=== PATIENT | male | born 1955 | race Caucasian/White ===

== ENCOUNTER 2017-08-08 21:45 | Inpatient (IN) | payer MEDICAID, OTHER ==
[2017-08-08 23:40] LABS: AADO2 Arterial 33.7 mmHg (7.0-24.0); Allen Test ACCEPTAB; Arterial Base Excess -5.8 mmol/L (-3.0-3); Arterial Blood Gas Oxygen Sat 96.8 mmHG (95.0-98.0); Arterial COHb 0.2 % (0.0-3.0); Arterial Fraction of Oxyhgb 96.5 % (93.0-99.0); Arterial HCO3 16.7 mmol/L (22.0-26.0); Arterial MetHb 0.1 % (0.0-1.5); Arterial Total Hemglobin 12.9 g/dl (12.0-18.0); Arterial pCO2 25.4 mmhg (35-45); MODE ROOM AIR; Site Left Radial
[2017-08-09] MEDS: ACETAMINOPHEN 500 MG TAB PO (01:20)
[2017-08-09] MEDS: SODIUM CHLORIDE 0.9% 1L BAG IV* (01:20)
[2017-08-09 01:34] LABS: ADD MAN DIFF? NO
[2017-08-09 01:39] LABS: WHITE BLOOD COUNT 18.4 10^3/ul (4.8-10.8)
[2017-08-09 01:39] LABS: BASOPHIL # 0.1 10^3/ul (0.0-0.1); BASOPHILS % 0.3 % (0.0-2.0); EOSINOPHILS % 0.2 % (0.0-7.0); HEMATOCRIT 38.1 % (42.0-52.0); HEMOGLOBIN 12.6 g/dl (14.0-18.0); LYMPHOCYTES # 1.5 10^3/ul (0.8-2.9); LYMPHOCYTES % 7.9 % (15.0-51.0); MEAN CORPUSCULAR HEMOGLOBIN 26.9 pg (29.0-33.0); MEAN CORPUSCULAR HGB CONC 33.1 g/dl (32.0-37.0); MEAN CORPUSCULAR VOLUME 81.2 fl (82.0-101.0); MEAN PLATELET VOLUME 10.4 fl (7.4-10.4); MONOCYTE # 1.5 10^3/ul (0.3-0.9); MONOCYTES % 8.1 % (0.0-11.0); NEUTROPHIL # 15.2 10^3/ul (1.6-7.5); NEUTROPHILS % 82.7 % (39.0-77.0); PLATELET COUNT 263 10^3/UL (140-415); RED BLOOD COUNT 4.69 10^6/ul (4.70-6.10); RED CELL DISTRIBUTION WIDTH 13.3 % (11.5-14.5)
[2017-08-09 01:40] LABS: ADD UMIC YES; UR ASCORBIC ACID NEGATIVE (NEGATIVE); UR BILIRUBIN (Dip) NEGATIVE (NEGATIVE); UR BLOOD (Dip) 1+ mg/dL (NEGATIVE); UR CLARITY CLEAR (CLEAR); UR COLOR STRAW (YELLOW); UR GLUCOSE (Dip) 3+ mg/dL (NEGATIVE); UR KETONES (Dip) NEGATIVE (NEGATIVE); UR LEUKOCYTE ESTERASE (Dip) NEGATIVE Leu/ul (NEGATIVE); UR NITRITE (Dip) NEGATIVE (NEGATIVE); UR RBC 1 /HPF (0-5); UR SPECIFIC GRAVITY (Dip) 1.006 (1.003-1.030); UR TOTAL PROTEIN (Dip) 3+ mg/dl (NEGATIVE); UR UROBILINOGEN (Dip) NEGATIVE (NEGATIVE); UR WBC 0 /HPF (0-5)
[2017-08-09 01:54] LABS: LACTIC ACID 1.4 mmol/L (0.5-2.0)
[2017-08-09 01:56] LABS: ALANINE AMINOTRANSFERASE 27 IU/L (13-69); ALBUMIN 3.5 g/dl (3.3-4.9); ALBUMIN/GLOBULIN RATIO 0.87; ALKALINE PHOSPHATASE 141 IU/L (42-121); ANION GAP 15 (8-16); ASPARTATE AMINO TRANSFERASE 17 IU/L (15-46); BILIRUBIN,INDIRECT 0.2 mg/dl (0-1.1); BILIRUBIN,TOTAL 0.2 mg/dl (0.2-1.3); BLOOD UREA NITROGEN 28 mg/dl (7-20); CALCIUM 7.8 mg/dl (8.4-10.2); CARBON DIOXIDE 19 mmol/L (21-31); CHLORIDE 105 mmol/L (97-110); CREATININE 3.13 mg/dl (0.61-1.24); GLUCOSE 265 mg/dl (70-220); POTASSIUM 5.5 mmol/L (3.5-5.1); SODIUM 133 mmol/L (135-144); TOTAL PROTEIN 7.5 g/dl (6.1-8.1)
[2017-08-09 02:06] LABS: INR 1.13; PARTIAL THROMBOPLASTIN TIME 38.8 Sec (25.0-35.0); PROTIME 14.7 Sec (11.9-14.9); PT RATIO 1.1
[2017-08-09 02:07] LABS: TROPONIN-I 0.016 ng/ml (0.000-0.120)
[2017-08-09] MEDS: CEFEPIME 2GM/50 ML (PMX) 50 ML IVPB (02:14)
[2017-08-09] MEDS ORDERED: NACL 0.9% 3 ML SYG IV (02:30)
[2017-08-09] MEDS ORDERED: ACETAMINOPHEN 325 MG TAB PO (02:30)
[2017-08-09] MEDS ORDERED: morphine 2 MG INJ IV (02:30)
[2017-08-09] MEDS ORDERED: DOCUSATE SODIUM 100 MG CAP PO (02:30)
[2017-08-09] MEDS: VANCOMYCIN 1 GM (PMX) 250 ML IVPB (03:17)
[2017-08-09] MEDS: SOD CHLORIDE 0.9% 1,000 ML IV ×2 (03:18→17:19)
[2017-08-09 06:20] LABS: LACTIC ACID 1.2 mmol/L (0.5-2.0)
[2017-08-09 06:36] LABS: TROPONIN-I 0.016 ng/ml (0.000-0.120)
[2017-08-09 06:39] LABS: CK INDEX 0.8; CREATINE KINASE 214 IU/L (23-200)
[2017-08-09 06:50] LABS: CK-MB 1.64 ng/ml (0.0-2.4)
[2017-08-09] MEDS: GABAPENTIN 100 MG CAP PO ×2 (08:17→20:44)
[2017-08-09] MEDS: LISINOPRIL 10 MG TAB PO (08:17)
[2017-08-09 08:33] LABS: LACTIC ACID 0.7 mmol/L (0.5-2.0)
[2017-08-09] MEDS ORDERED: VANCOMYCIN IV PER PHARMACY XX (09:00)
[2017-08-09] MEDS: FUROSEMIDE 40 MG INJ IV (09:18)
[2017-08-09] MEDS: VANCOMYCIN 750 MG in DEXTROSE 5% 150 ML IVPB (09:18)
[2017-08-09] MEDS ORDERED: VANCOMYCIN 1.75 GM in SOD CHLORIDE 0.9% 500 ML IVPB (10:30)
[2017-08-09 10:59] LABS: SODIUM,URINE RANDOM 75 mmol/L (30-90)
[2017-08-09 11:00] LABS: ADD UMIC YES; UR ASCORBIC ACID NEGATIVE (NEGATIVE); UR BILIRUBIN (Dip) NEGATIVE (NEGATIVE); UR BLOOD (Dip) 1+ mg/dL (NEGATIVE); UR CLARITY CLEAR (CLEAR); UR COLOR COLORLESS (YELLOW); UR GLUCOSE (Dip) 3+ mg/dL (NEGATIVE); UR KETONES (Dip) NEGATIVE (NEGATIVE); UR LEUKOCYTE ESTERASE (Dip) NEGATIVE Leu/ul (NEGATIVE); UR NITRITE (Dip) NEGATIVE (NEGATIVE); UR RBC 1 /HPF (0-5); UR SPECIFIC GRAVITY (Dip) 1.002 (1.003-1.030); UR TOTAL PROTEIN (Dip) 2+ mg/dl (NEGATIVE); UR UROBILINOGEN (Dip) NEGATIVE (NEGATIVE); UR WBC 0 /HPF (0-5)
[2017-08-09] MEDS: INSULIN ASPART [NOVOLOG] 3 ML PEN SC ×6 (11:45→20:43)
[2017-08-09] MEDS: hydrALAzine 20 MG INJ IV ×2 (11:57→17:11)
[2017-08-09] MEDS ORDERED: GLUCOSE GEL 15 GRAM TUBE BUCCAL (12:00)
[2017-08-09] MEDS ORDERED: GLUCAGON 1 MG INJ IM (12:00)
[2017-08-09] MEDS ORDERED: GLUCOSE GEL 15 GRAM TUBE PO ×2 (12:00)
[2017-08-09] MEDS ORDERED: DEXTROSE 50% 50 ML SYRINGE IV ×2 (12:00)
[2017-08-09] MEDS: AMLODIPINE 5 MG TAB PO ×2 (13:38→20:45)
[2017-08-09 15:49] LABS: OSMOLALITY,URINE 258 mOsm/kg (250-1200)
[2017-08-09 16:03] LABS: LACTIC ACID 1.7 mmol/L (0.5-2.0)
[2017-08-09 16:04] LABS: CREATINE KINASE 309 IU/L (23-200)
[2017-08-09 16:06] LABS: ANION GAP 12 (8-16); BLOOD UREA NITROGEN 26 mg/dl (7-20); CALCIUM 8.1 mg/dl (8.4-10.2); CARBON DIOXIDE 20 mmol/L (21-31); CHLORIDE 113 mmol/L (97-110); CREATININE 3.05 mg/dl (0.61-1.24); GLUCOSE 209 mg/dl (70-220); POTASSIUM 4.4 mmol/L (3.5-5.1); SODIUM 141 mmol/L (135-144)
[2017-08-09 16:08] LABS: OSMOLALITY 296 mOsm/kg (280-295)
[2017-08-09 16:51] LABS: CREATININE,URINE RANDOM < 12.40 mg/dl (20-370)
[2017-08-09 17:07] LABS: CK-MB 3.19 ng/ml (0.0-2.4); TROPONIN-I < 0.010 ng/ml (0.000-0.120)
[2017-08-09 17:54] LABS: PREALBUMIN 18.9 mg/dl (17.6-36.0)
[2017-08-09 17:57] LABS: B-TYPE NATRIURETIC PEPTIDE 2290 PG/ML (0-125)
[2017-08-09] MEDS: ATORVASTATIN 20 MG TAB PO (20:44)
[2017-08-09] MEDS: INSULIN GLARGINE [LANtus] 3 ML PEN SC (20:44)
[2017-08-09] MEDS: CEFEPIME 1GM/50 ML (PMX) 50 ML IVPB (22:52)
[2017-08-10] MEDS: ACCU-CHEK XX (02:00)
[2017-08-10] MEDS: GABAPENTIN 100 MG CAP PO ×2 (08:22→20:13)
[2017-08-10] MEDS: AMLODIPINE 5 MG TAB PO ×2 (08:22→20:11)
[2017-08-10] MEDS: ASPIRIN 81 MG TAB PO (08:22)
[2017-08-10] MEDS: INSULIN ASPART [NOVOLOG] 3 ML PEN SC ×7 (08:24→20:12)
[2017-08-10] MEDS: FUROSEMIDE 40 MG INJ IV (08:33)
[2017-08-10 09:48] LABS: ADD MAN DIFF? NO
[2017-08-10 09:52] LABS: WHITE BLOOD COUNT 14.3 10^3/ul (4.8-10.8)
[2017-08-10 09:53] LABS: BASOPHILS % 0.3 % (0.0-2.0); EOSINOPHILS # 0.1 10^3/ul (0.0-0.5); EOSINOPHILS % 0.6 % (0.0-7.0); HEMATOCRIT 39.1 % (42.0-52.0); HEMOGLOBIN 12.7 g/dl (14.0-18.0); LYMPHOCYTES # 1.6 10^3/ul (0.8-2.9); MEAN CORPUSCULAR HEMOGLOBIN 26.5 pg (29.0-33.0); MEAN CORPUSCULAR HGB CONC 32.5 g/dl (32.0-37.0); MEAN CORPUSCULAR VOLUME 81.6 fl (82.0-101.0); MEAN PLATELET VOLUME 10.6 fl (7.4-10.4); MONOCYTES % 7.3 % (0.0-11.0); NEUTROPHIL # 11.5 10^3/ul (1.6-7.5); NEUTROPHILS % 80.2 % (39.0-77.0); PLATELET COUNT 276 10^3/UL (140-415); RED BLOOD COUNT 4.79 10^6/ul (4.70-6.10); RED CELL DISTRIBUTION WIDTH 13.5 % (11.5-14.5)
[2017-08-10 10:13] LABS: ALANINE AMINOTRANSFERASE 25 IU/L (13-69); ALBUMIN 3.7 g/dl (3.3-4.9); ALBUMIN/GLOBULIN RATIO 0.92; ALKALINE PHOSPHATASE 110 IU/L (42-121); ANION GAP 13 (8-16); ASPARTATE AMINO TRANSFERASE 18 IU/L (15-46); BILIRUBIN,INDIRECT 0.4 mg/dl (0-1.1); BILIRUBIN,TOTAL 0.4 mg/dl (0.2-1.3); BLOOD UREA NITROGEN 23 mg/dl (7-20); CALCIUM 7.9 mg/dl (8.4-10.2); CARBON DIOXIDE 22 mmol/L (21-31); CHLORIDE 109 mmol/L (97-110); CHOL/HDL RATIO 4.3 RATIO; CHOLESTEROL 121 mg/dl (100-200); CREATININE 2.86 mg/dl (0.61-1.24); GLUCOSE 184 mg/dl (70-220); HDL CHOLESTEROL 28 mg/dl (30-78); LDL CHOLESTEROL,CALCULATED 64 mg/dl; MAGNESIUM 1.6 mg/dl (1.7-2.5); PHOSPHORUS 3.3 mg/dl (2.5-4.9); POTASSIUM 4.1 mmol/L (3.5-5.1); SODIUM 140 mmol/L (135-144); TOTAL PROTEIN 7.7 g/dl (6.1-8.1); TRIGLYCERIDES 144 mg/dl (0-149)
[2017-08-10 10:25] LABS: HEMOGLOBIN A1C 9.2 % (0-5.9)
[2017-08-10 15:51] LABS: CREATININE, RANDOM URINE 19 mg/dL (20-370); MICROALBUMIN 75.3 mg/dL; MICROALBUMIN/CREATININE RATIO 3963 (<30)
[2017-08-10] MEDS: hydrALAzine 20 MG INJ IV (17:22)
[2017-08-10] MEDS: CEFEPIME 1GM/50 ML (PMX) 50 ML IVPB (20:10)
[2017-08-10] MEDS: INSULIN GLARGINE [LANtus] 3 ML PEN SC (20:12)
[2017-08-10] MEDS: ATORVASTATIN 20 MG TAB PO (20:13)
[2017-08-10] MEDS: morphine LIQ (10 MG/5 ML) CUP PO (21:40)
[2017-08-11 00:37] LABS: PROTEIN, TOTAL 6.8 g/dL (6.1-8.1)
[2017-08-11] MEDS: ACCU-CHEK XX ×2 (02:00→22:37)
[2017-08-11] MEDS: hydrALAzine 20 MG INJ IV (03:32)
[2017-08-11] MEDS: ONDANSETRON 4 MG INJ IV (06:48)
[2017-08-11 07:33] LABS: ADD MAN DIFF? NO
[2017-08-11 07:39] LABS: WHITE BLOOD COUNT 13.9 10^3/ul (4.8-10.8)
[2017-08-11 07:39] LABS: BASOPHILS % 0.2 % (0.0-2.0); EOSINOPHILS # 0.1 10^3/ul (0.0-0.5); EOSINOPHILS % 0.9 % (0.0-7.0); HEMATOCRIT 42.6 % (42.0-52.0); HEMOGLOBIN 13.8 g/dl (14.0-18.0); LYMPHOCYTES # 1.6 10^3/ul (0.8-2.9); LYMPHOCYTES % 11.3 % (15.0-51.0); MEAN CORPUSCULAR HEMOGLOBIN 26.5 pg (29.0-33.0); MEAN CORPUSCULAR HGB CONC 32.4 g/dl (32.0-37.0); MEAN CORPUSCULAR VOLUME 81.8 fl (82.0-101.0); MEAN PLATELET VOLUME 10.4 fl (7.4-10.4); MONOCYTE # 0.9 10^3/ul (0.3-0.9); MONOCYTES % 6.5 % (0.0-11.0); NEUTROPHIL # 11.2 10^3/ul (1.6-7.5); NEUTROPHILS % 80.5 % (39.0-77.0); PLATELET COUNT 334 10^3/UL (140-415); RED BLOOD COUNT 5.21 10^6/ul (4.70-6.10); RED CELL DISTRIBUTION WIDTH 13.6 % (11.5-14.5)
[2017-08-11 07:52] LABS: ANION GAP 12 (8-16); BLOOD UREA NITROGEN 21 mg/dl (7-20); CALCIUM 8.5 mg/dl (8.4-10.2); CARBON DIOXIDE 23 mmol/L (21-31); CHLORIDE 108 mmol/L (97-110); CREATININE 2.74 mg/dl (0.61-1.24); GLUCOSE 202 mg/dl (70-220); MAGNESIUM 1.6 mg/dl (1.7-2.5); PHOSPHORUS 3.7 mg/dl (2.5-4.9); POTASSIUM 4.2 mmol/L (3.5-5.1); SODIUM 139 mmol/L (135-144)
[2017-08-11] MEDS: ASPIRIN 81 MG TAB PO (08:12)
[2017-08-11] MEDS: AMLODIPINE 5 MG TAB PO ×2 (08:12→20:31)
[2017-08-11] MEDS: GABAPENTIN 100 MG CAP PO ×2 (08:12→20:29)
[2017-08-11] MEDS: INSULIN ASPART [NOVOLOG] 3 ML PEN SC ×7 (08:13→20:31)
[2017-08-11] MEDS: FUROSEMIDE 40 MG INJ IV ×2 (08:44→17:19)
[2017-08-11 09:44] LABS: HAAIG REFLEX REFLEX FILED
[2017-08-11] MEDS: MAGNESIUM SULFATE 1 GM/D5W 100 ML IVPB (10:17)
[2017-08-11] MEDS: POLYETHYLENE GLYCOL 17 GM PACKET PO ×2 (10:17→20:30)
[2017-08-11 10:29] LABS: COMPLEMENT C3 150 mg/dl (88-165)
[2017-08-11 10:46] LABS: COMPLEMENT C4 70 mg/dl (14-44)
[2017-08-11 10:52] LABS: HEPATITIS B SURFACE ANTIGEN NEGATIVE (NEGATIVE)
[2017-08-11] MEDS ORDERED: VANCOMYCIN 1.25 GM in SOD CHLORIDE 0.9% 250 ML IVPB (11:00)
[2017-08-11 11:10] LABS: HEPATITIS B CORE ANTIBODY NEGATIVE (NEGATIVE); HEPATITIS C VIRAL ANTIBODY NEGATIVE (NEGATIVE)
[2017-08-11 14:57] LABS: ALBUMIN 2.9 g/dL (3.8-4.8); ALPHA-1-GLOBULINS 0.4 g/dL (0.2-0.3); ALPHA-2-GLOBULINS 1.2 g/dL (0.5-0.9); BETA 2 GLOBULINS 0.6 g/dL (0.2-0.5); BETA GLOBULINS 0.4 g/dL (0.4-0.6); GAMMA GLOBULINS 1.3 g/dL (0.8-1.7)
[2017-08-11 15:31] LABS: RHEUMATOID FACTOR NEGATIVE (NEGATIVE)
[2017-08-11] MEDS: INSULIN GLARGINE [LANtus] 3 ML PEN SC (20:28)
[2017-08-11] MEDS: ATORVASTATIN 20 MG TAB PO (20:29)
[2017-08-12 06:11] LABS: ADD MAN DIFF? NO
[2017-08-12 06:17] LABS: BASOPHIL # 0.1 10^3/ul (0.0-0.1); BASOPHILS % 0.5 % (0.0-2.0); EOSINOPHILS # 0.2 10^3/ul (0.0-0.5); EOSINOPHILS % 1.9 % (0.0-7.0); HEMATOCRIT 38.1 % (42.0-52.0); HEMOGLOBIN 12.6 g/dl (14.0-18.0); LYMPHOCYTES % 18.7 % (15.0-51.0); MEAN CORPUSCULAR HEMOGLOBIN 27.1 pg (29.0-33.0); MEAN CORPUSCULAR HGB CONC 33.1 g/dl (32.0-37.0); MEAN CORPUSCULAR VOLUME 81.9 fl (82.0-101.0); MEAN PLATELET VOLUME 10.3 fl (7.4-10.4); MONOCYTES % 9.5 % (0.0-11.0); NEUTROPHIL # 7.3 10^3/ul (1.6-7.5); NEUTROPHILS % 68.9 % (39.0-77.0); PLATELET COUNT 290 10^3/UL (140-415); RED BLOOD COUNT 4.65 10^6/ul (4.70-6.10); RED CELL DISTRIBUTION WIDTH 13.6 % (11.5-14.5)
[2017-08-12 06:17] LABS: WHITE BLOOD COUNT 10.6 10^3/ul (4.8-10.8)
[2017-08-12] MEDS: FUROSEMIDE 40 MG INJ IV (06:19)
[2017-08-12 07:04] LABS: ANION GAP 9 (8-16); BLOOD UREA NITROGEN 33 mg/dl (7-20); CALCIUM 7.9 mg/dl (8.4-10.2); CARBON DIOXIDE 25 mmol/L (21-31); CHLORIDE 107 mmol/L (97-110); CREATININE 3.48 mg/dl (0.61-1.24); GLUCOSE 220 mg/dl (70-220); MAGNESIUM 1.9 mg/dl (1.7-2.5); PHOSPHORUS 4.6 mg/dl (2.5-4.9); POTASSIUM 4.2 mmol/L (3.5-5.1); SODIUM 137 mmol/L (135-144)
[2017-08-12] MEDS: ASPIRIN 81 MG TAB PO (08:41)
[2017-08-12] MEDS: GABAPENTIN 100 MG CAP PO ×2 (08:42→21:03)
[2017-08-12] MEDS: AMLODIPINE 5 MG TAB PO ×2 (08:42→21:03)
[2017-08-12] MEDS: POLYETHYLENE GLYCOL 17 GM PACKET PO ×2 (08:42→21:07)
[2017-08-12] MEDS: INSULIN ASPART [NOVOLOG] 3 ML PEN SC ×7 (08:43→21:00)
[2017-08-12 11:27] LABS: MYELOPEROXIDASE ANTIBODY <1.0 AI; PROTEINASE-3 ANTIBODY <1.0 AI
[2017-08-12 12:56] LABS: ANCA SCREEN NEGATIVE (NEGATIVE)
[2017-08-12 19:42] LABS: ANA SCREEN POSITIVE (NEGATIVE)
[2017-08-12 20:26] LABS: ANA PATTERN NUCLEOLAR; ANA TITER 1:40 titer
[2017-08-12] MEDS: ATORVASTATIN 20 MG TAB PO (21:04)
[2017-08-12] MEDS: INSULIN GLARGINE [LANtus] 3 ML PEN SC (21:14)
[2017-08-13] MEDS: ACCU-CHEK XX (01:41)
[2017-08-13] MEDS: BISACODYL (EC) 5 MG TAB PO (06:14)
[2017-08-13 07:35] LABS: ANION GAP 12 (8-16); BLOOD UREA NITROGEN 42 mg/dl (7-20); CARBON DIOXIDE 24 mmol/L (21-31); CHLORIDE 105 mmol/L (97-110); CREATININE 3.42 mg/dl (0.61-1.24); GLUCOSE 189 mg/dl (70-220); PHOSPHORUS 4.7 mg/dl (2.5-4.9); POTASSIUM 4.9 mmol/L (3.5-5.1); SODIUM 136 mmol/L (135-144)
[2017-08-13] MEDS: AMLODIPINE 5 MG TAB PO (08:28)
[2017-08-13] MEDS: ASPIRIN 81 MG TAB PO (08:28)
[2017-08-13] MEDS: GABAPENTIN 100 MG CAP PO (08:28)
[2017-08-13] MEDS: POLYETHYLENE GLYCOL 17 GM PACKET PO (08:29)
[2017-08-13] MEDS: INSULIN ASPART [NOVOLOG] 3 ML PEN SC ×4 (08:31→11:54)
[2017-08-15 14:11] LABS: ANTI-DNA (DOUBLE STRANDED) 1850 U/mL (< 301)
== END 2017-08-13 16:05 | disposition home or self-care (01) | DRG 872 ==
LOC: E/R 21:45 → MS3 08-09 01:58 → MS4 08-09 10:38
DX: A41.9 Sepsis, unspecified organism (principal); N17.9 Acute kidney failure, unspecified; E87.1 Hypo-osmolality and hyponatremia; N18.4 Chronic kidney disease, stage 4 (severe); E11.21 Type 2 diabetes mellitus with diabetic nephropathy; E11.40 Type 2 diabetes mellitus with diabetic neuropathy, unspecified; E11.22 Type 2 diabetes mellitus with diabetic chronic kidney disease; E87.5 Hyperkalemia; I12.9 Hypertensive chronic kidney disease with stage 1 through stage 4 chronic kidney disease, or unspecified chronic kidney disease; R07.9 Chest pain, unspecified; I73.9 Peripheral vascular disease, unspecified; R10.9 Unspecified abdominal pain; D63.1 Anemia in chronic kidney disease; K27.9 Peptic ulcer, site unspecified, unspecified as acute or chronic, without hemorrhage or perforation; Z79.4 Long term (current) use of insulin; R65.20 Severe sepsis without septic shock
CPT/HCPCS: 36415; 36600; 71045; 76700; 80048; 80053; 80061; 81001; 81003; 82043; 82550; 82553; 82570; 82595; 82803; 82962; 83036; 83605; 83735; 83880; 83930; 83935; 84100; 84134; 84155; 84156; 84165; 84166; 84300; 84443; 84484; 85025; 85610; 85730; 86021; 86038; 86160; 86226; 86320; 86325; 86430; 86704; 86709; 86803; 87040; 87045; 87086; 87340; 87400; 93005; 93306; 93970; 96361; 96365; 96366; 96375; 99291-25

== ENCOUNTER 2017-08-22 00:28 | Emergency (ER) | payer SELFPAY, MEDICAID | END 2017-08-22 02:11 | disposition home or self-care (01) | LOC: FTE 00:28 | DX: Z76.0 Encounter for issue of repeat prescription (principal); I10 Essential (primary) hypertension; E11.9 Type 2 diabetes mellitus without complications; Z79.4 Long term (current) use of insulin | CPT/HCPCS: 99283 ==

== ENCOUNTER 2017-10-13 18:57 | Emergency (ER) | payer SELFPAY ==
[2017-10-13 20:53] LABS: ADD MAN DIFF? NO
[2017-10-13 20:55] LABS: WHITE BLOOD COUNT 11.3 10^3/ul (4.8-10.8)
[2017-10-13 20:55] LABS: BASOPHIL # 0.1 10^3/ul (0.0-0.1); BASOPHILS % 0.5 % (0.0-2.0); EOSINOPHILS # 0.3 10^3/ul (0.0-0.5); EOSINOPHILS % 2.2 % (0.0-7.0); HEMATOCRIT 39.9 % (42.0-52.0); HEMOGLOBIN 12.8 g/dl (14.0-18.0); LYMPHOCYTES # 3.3 10^3/ul (0.8-2.9); LYMPHOCYTES % 29.5 % (15.0-51.0); MEAN CORPUSCULAR HEMOGLOBIN 26.6 pg (29.0-33.0); MEAN CORPUSCULAR HGB CONC 32.1 g/dl (32.0-37.0); MEAN PLATELET VOLUME 10.4 fl (7.4-10.4); MONOCYTE # 1.1 10^3/ul (0.3-0.9); NEUTROPHIL # 6.5 10^3/ul (1.6-7.5); NEUTROPHILS % 57.4 % (39.0-77.0); PLATELET COUNT 284 10^3/UL (140-415); RED BLOOD COUNT 4.81 10^6/ul (4.70-6.10)
[2017-10-13 21:01] LABS: ALANINE AMINOTRANSFERASE 24 IU/L (13-69); ALBUMIN 4.3 g/dl (3.3-4.9); ALBUMIN/GLOBULIN RATIO 0.93; ALKALINE PHOSPHATASE 116 IU/L (42-121); ANION GAP 18 (8-16); ASPARTATE AMINO TRANSFERASE 26 IU/L (15-46); BILIRUBIN,INDIRECT 0.1 mg/dl (0-1.1); BILIRUBIN,TOTAL 0.1 mg/dl (0.2-1.3); BLOOD UREA NITROGEN 28 mg/dl (7-20); CALCIUM 8.6 mg/dl (8.4-10.2); CARBON DIOXIDE 20 mmol/L (21-31); CHLORIDE 111 mmol/L (97-110); CREATININE 3.25 mg/dl (0.61-1.24); GLUCOSE 144 mg/dl (70-220); LIPASE 327 U/L (23-300); SODIUM 143 mmol/L (135-144); TOTAL PROTEIN 8.9 g/dl (6.1-8.1)
[2017-10-13 21:04] LABS: POTASSIUM 5.5 mmol/L (3.5-5.1)
[2017-10-13 21:13] LABS: TROPONIN-I < 0.010 ng/ml (0.000-0.120)
[2017-10-13] MEDS: ALBUTEROL 0.5% (NEB) 2.5 MG/0.5 ML AMP INH (21:53)
[2017-10-13 23:01] LABS: ANION GAP 13 (8-16); BLOOD UREA NITROGEN 26 mg/dl (7-20); CALCIUM 8.2 mg/dl (8.4-10.2); CARBON DIOXIDE 19 mmol/L (21-31); CHLORIDE 113 mmol/L (97-110); CREATININE 3.02 mg/dl (0.61-1.24); GLUCOSE 135 mg/dl (70-220); POTASSIUM 5.5 mmol/L (3.5-5.1); SODIUM 139 mmol/L (135-144)
[2017-10-13] MEDS: NA POLYST SULFON 15 GM/60 ML BTL PO (23:25)
[2017-10-13] MEDS: INSULIN REGULAR, HUMAN 100 UNIT/1 ML 3ML VIAL IVP (23:25)
[2017-10-13] MEDS: DEXTROSE 50% 50 ML SYRINGE IV (23:25)
[2017-10-13] MEDS ORDERED: DEXTROSE 50% 50 ML SYRINGE IV (23:30)
[2017-10-13] MEDS: FUROSEMIDE 20 MG TAB PO (23:40)
== END 2017-10-14 00:40 | disposition home or self-care (01) ==
LOC: E/R 10-14 00:40
DX: I12.9 Hypertensive chronic kidney disease with stage 1 through stage 4 chronic kidney disease, or unspecified chronic kidney disease (principal); E87.5 Hyperkalemia; N18.3 Chronic kidney disease, stage 3 (moderate); E11.22 Type 2 diabetes mellitus with diabetic chronic kidney disease; R06.02 Shortness of breath; Z76.0 Encounter for issue of repeat prescription; Z79.4 Long term (current) use of insulin
CPT/HCPCS: 36415; 71045; 80048; 80053; 82962; 83690; 84484; 85025; 93005; 94644; 96374; 96375; 99291-25

== ENCOUNTER 2017-11-18 12:32 | Inpatient (IN) | payer MEDICAID ==
[2017-11-18] MEDS: hydrALAzine 20 MG INJ IV (13:04)
[2017-11-18 13:09] LABS: ADD MAN DIFF? NO
[2017-11-18 13:13] LABS: WHITE BLOOD COUNT 14.5 10^3/ul (4.8-10.8)
[2017-11-18 13:13] LABS: BASOPHIL # 0.1 10^3/ul (0.0-0.1); BASOPHILS % 0.3 % (0.0-2.0); EOSINOPHILS # 0.1 10^3/ul (0.0-0.5); EOSINOPHILS % 0.6 % (0.0-7.0); HEMATOCRIT 37.5 % (42.0-52.0); HEMOGLOBIN 12.3 g/dl (14.0-18.0); LYMPHOCYTES % 7.2 % (15.0-51.0); MEAN CORPUSCULAR HEMOGLOBIN 26.9 pg (29.0-33.0); MEAN CORPUSCULAR HGB CONC 32.8 g/dl (32.0-37.0); MEAN CORPUSCULAR VOLUME 82.1 fl (82.0-101.0); MEAN PLATELET VOLUME 10.3 fl (7.4-10.4); MONOCYTE # 0.7 10^3/ul (0.3-0.9); MONOCYTES % 4.6 % (0.0-11.0); NEUTROPHIL # 12.6 10^3/ul (1.6-7.5); NEUTROPHILS % 86.8 % (39.0-77.0); PLATELET COUNT 315 10^3/UL (140-415); RED BLOOD COUNT 4.57 10^6/ul (4.70-6.10); RED CELL DISTRIBUTION WIDTH 13.9 % (11.5-14.5)
[2017-11-18 13:29] LABS: ANION GAP 16 (8-16); BLOOD UREA NITROGEN 31 mg/dl (7-20); CARBON DIOXIDE 21 mmol/L (21-31); CHLORIDE 110 mmol/L (97-110); CREATININE 3.18 mg/dl (0.61-1.24); GLUCOSE 187 mg/dl (70-220); POTASSIUM 4.7 mmol/L (3.5-5.1); SODIUM 142 mmol/L (135-144)
[2017-11-18 13:32] LABS: INR 0.94; PROTIME 12.7 Sec (11.9-14.9)
[2017-11-18 13:33] LABS: PARTIAL THROMBOPLASTIN TIME 34.4 Sec (25.0-35.0)
[2017-11-18 13:41] LABS: TROPONIN-I < 0.012 ng/ml (0.000-0.120)
[2017-11-18] MEDS: LABETALOL HCL 20MG INJ IV (13:45)
[2017-11-18] MEDS: AMLODIPINE 5 MG TAB PO (14:42)
[2017-11-18] MEDS ORDERED: ACETAMINOPHEN 325 MG TAB PO (16:30)
[2017-11-18] MEDS ORDERED: NACL 0.9% 3 ML SYG IV (16:30)
[2017-11-18] MEDS ORDERED: ONDANSETRON 4 MG INJ IV ×2 (16:30)
[2017-11-18] MEDS ORDERED: GLUCOSE GEL 15 GRAM TUBE BUCCAL (17:30)
[2017-11-18] MEDS ORDERED: GLUCOSE GEL 15 GRAM TUBE PO ×2 (17:30)
[2017-11-18] MEDS ORDERED: DEXTROSE 50% 50 ML SYRINGE IV ×2 (17:30)
[2017-11-18] MEDS ORDERED: GLUCAGON 1 MG INJ IM (17:30)
[2017-11-18] MEDS: INSULIN ASPART [NOVOLOG] 3 ML PEN SC ×3 (18:45→21:38)
[2017-11-18] MEDS ORDERED: CARVEDILOL 12.5 MG PO (21:00)
[2017-11-18] MEDS: GABAPENTIN 100 MG CAP PO (21:16)
[2017-11-18] MEDS: ATORVASTATIN 20 MG TAB PO (21:16)
[2017-11-18] MEDS: INSULIN GLARGINE [LANTus] (100 UNITS/ML) SYG SC (21:38)
[2017-11-19 06:10] LABS: ADD MAN DIFF? NO
[2017-11-19 06:16] LABS: WHITE BLOOD COUNT 12.4 10^3/ul (4.8-10.8)
[2017-11-19 06:16] LABS: BASOPHIL # 0.1 10^3/ul (0.0-0.1); BASOPHILS % 0.4 % (0.0-2.0); EOSINOPHILS # 0.2 10^3/ul (0.0-0.5); EOSINOPHILS % 1.9 % (0.0-7.0); HEMATOCRIT 32.5 % (42.0-52.0); HEMOGLOBIN 10.5 g/dl (14.0-18.0); LYMPHOCYTES # 1.9 10^3/ul (0.8-2.9); LYMPHOCYTES % 15.5 % (15.0-51.0); MEAN CORPUSCULAR HEMOGLOBIN 26.4 pg (29.0-33.0); MEAN CORPUSCULAR HGB CONC 32.3 g/dl (32.0-37.0); MEAN CORPUSCULAR VOLUME 81.9 fl (82.0-101.0); MEAN PLATELET VOLUME 10.3 fl (7.4-10.4); MONOCYTE # 1.1 10^3/ul (0.3-0.9); MONOCYTES % 8.9 % (0.0-11.0); NEUTROPHIL # 9.1 10^3/ul (1.6-7.5); NEUTROPHILS % 72.8 % (39.0-77.0); PLATELET COUNT 283 10^3/UL (140-415); RED BLOOD COUNT 3.97 10^6/ul (4.70-6.10); RED CELL DISTRIBUTION WIDTH 14.1 % (11.5-14.5)
[2017-11-19 06:57] LABS: CREATINE KINASE 68 IU/L (23-200)
[2017-11-19 07:01] LABS: CHOLESTEROL 126 mg/dl (100-200); HDL CHOLESTEROL 31 mg/dl (30-78); LDL CHOLESTEROL,CALCULATED 69 mg/dl; TRIGLYCERIDES 131 mg/dl (0-149)
[2017-11-19 07:01] LABS: PHOSPHORUS 3.8 mg/dl (2.5-4.9)
[2017-11-19 07:11] LABS: CK INDEX 1.5; CK-MB 1.05 ng/ml (0.0-2.4); TROPONIN-I < 0.012 ng/ml (0.000-0.120)
[2017-11-19 07:37] LABS: ALBUMIN 3.3 g/dl (3.3-4.9); ALBUMIN/GLOBULIN RATIO 0.84; ALKALINE PHOSPHATASE 95 IU/L (42-121); ANION GAP 11 (8-16); ASPARTATE AMINO TRANSFERASE 20 IU/L (15-46); BILIRUBIN,INDIRECT 0.2 mg/dl (0-1.1); BILIRUBIN,TOTAL 0.2 mg/dl (0.2-1.3); BLOOD UREA NITROGEN 34 mg/dl (7-20); CALCIUM 8.4 mg/dl (8.4-10.2); CARBON DIOXIDE 21 mmol/L (21-31); CHLORIDE 112 mmol/L (97-110); CREATININE 3.13 mg/dl (0.61-1.24); GLUCOSE 139 mg/dl (70-220); POTASSIUM 4.2 mmol/L (3.5-5.1); SODIUM 140 mmol/L (135-144); TOTAL PROTEIN 7.2 g/dl (6.1-8.1)
[2017-11-19 08:00] LABS: ALANINE AMINOTRANSFERASE 26 IU/L (13-69)
[2017-11-19] MEDS: GABAPENTIN 100 MG CAP PO ×2 (08:12→21:06)
[2017-11-19] MEDS: AMLODIPINE 2.5 MG TAB PO (08:13)
[2017-11-19] MEDS: INSULIN ASPART [NOVOLOG] 3 ML PEN SC ×7 (08:46→21:25)
[2017-11-19] MEDS: hydrALAzine 20 MG INJ IV (15:02)
[2017-11-19] MEDS: ATORVASTATIN 20 MG TAB PO (21:06)
[2017-11-19] MEDS: AMLODIPINE 5 MG TAB PO (21:07)
[2017-11-19] MEDS: INSULIN GLARGINE [LANTus] (100 UNITS/ML) SYG SC (21:24)
[2017-11-20 02:18] LABS: AMPHETAMINE/METHAMPHETAMINE NEGATIVE (NEGATIVE); BARBITURATES NEGATIVE (NEGATIVE); BENZODIAZEPINES NEGATIVE (NEGATIVE); CANNABINOIDS NEGATIVE (NEGATIVE); COCAINE NEGATIVE (NEGATIVE); OPIATES NEGATIVE (NEGATIVE)
[2017-11-20] MEDS: ACCU-CHEK XX (02:22)
[2017-11-20 05:52] LABS: ADD MAN DIFF? NO
[2017-11-20 06:01] LABS: WHITE BLOOD COUNT 11.2 10^3/ul (4.8-10.8)
[2017-11-20 06:01] LABS: BASOPHIL # 0.1 10^3/ul (0.0-0.1); BASOPHILS % 0.5 % (0.0-2.0); EOSINOPHILS # 0.3 10^3/ul (0.0-0.5); EOSINOPHILS % 2.6 % (0.0-7.0); HEMATOCRIT 36.5 % (42.0-52.0); HEMOGLOBIN 11.8 g/dl (14.0-18.0); LYMPHOCYTES # 2.1 10^3/ul (0.8-2.9); LYMPHOCYTES % 18.7 % (15.0-51.0); MEAN CORPUSCULAR HEMOGLOBIN 26.5 pg (29.0-33.0); MEAN CORPUSCULAR HGB CONC 32.3 g/dl (32.0-37.0); MEAN PLATELET VOLUME 10.4 fl (7.4-10.4); MONOCYTES % 8.6 % (0.0-11.0); NEUTROPHIL # 7.8 10^3/ul (1.6-7.5); NEUTROPHILS % 69.2 % (39.0-77.0); PLATELET COUNT 337 10^3/UL (140-415); RED BLOOD COUNT 4.45 10^6/ul (4.70-6.10); RED CELL DISTRIBUTION WIDTH 14.2 % (11.5-14.5)
[2017-11-20 06:46] LABS: ANION GAP 14 (8-16); BLOOD UREA NITROGEN 37 mg/dl (7-20); CALCIUM 8.6 mg/dl (8.4-10.2); CARBON DIOXIDE 19 mmol/L (21-31); CHLORIDE 112 mmol/L (97-110); CREATININE 3.21 mg/dl (0.61-1.24); GLUCOSE 139 mg/dl (70-220); POTASSIUM 4.5 mmol/L (3.5-5.1); SODIUM 140 mmol/L (135-144)
[2017-11-20 06:48] LABS: PHOSPHORUS 4.2 mg/dl (2.5-4.9)
[2017-11-20 07:01] LABS: TROPONIN-I < 0.012 ng/ml (0.000-0.120)
[2017-11-20] MEDS: GABAPENTIN 100 MG CAP PO ×2 (08:23→20:40)
[2017-11-20] MEDS: AMLODIPINE 5 MG TAB PO ×2 (08:23→20:40)
[2017-11-20] MEDS: INSULIN ASPART [NOVOLOG] 3 ML PEN SC ×7 (08:51→21:00)
[2017-11-20] MEDS ORDERED: PENDING SANTYL ORDER FOR WOUND CARE XX (16:00)
[2017-11-20] MEDS: ATORVASTATIN 20 MG TAB PO (20:40)
[2017-11-20] MEDS: INSULIN GLARGINE [LANTus] (100 UNITS/ML) SYG SC (21:04)
[2017-11-20] MEDS: hydrALAzine 20 MG INJ IV (22:11)
[2017-11-21] MEDS: ACCU-CHEK XX (01:41)
[2017-11-21] MEDS: GABAPENTIN 100 MG CAP PO ×2 (08:27→20:09)
[2017-11-21] MEDS: AMLODIPINE 5 MG TAB PO ×2 (08:28→20:08)
[2017-11-21] MEDS: INSULIN ASPART [NOVOLOG] 3 ML PEN SC ×7 (09:02→20:09)
[2017-11-21] MEDS ORDERED: COLLAGENASE 5 GM (UD JAR) TOP (14:30)
[2017-11-21] MEDS: COLLAGENASE 5 GM (UD JAR) TOP (14:37)
[2017-11-21 14:57] LABS: ADD UMIC YES; UR ASCORBIC ACID NEGATIVE (NEGATIVE); UR BACTERIA FEW /HPF (NONE SEEN); UR BILIRUBIN (Dip) NEGATIVE (NEGATIVE); UR BLOOD (Dip) NEGATIVE (NEGATIVE); UR CLARITY CLEAR (CLEAR); UR COLOR STRAW (YELLOW); UR GLUCOSE (Dip) 2+ mg/dL (NEGATIVE); UR KETONES (Dip) NEGATIVE (NEGATIVE); UR LEUKOCYTE ESTERASE (Dip) NEGATIVE Leu/ul (NEGATIVE); UR NITRITE (Dip) NEGATIVE (NEGATIVE); UR RBC 1 /HPF (0-5); UR SPECIFIC GRAVITY (Dip) 1.009 (1.003-1.030); UR TOTAL PROTEIN (Dip) 3+ mg/dl (NEGATIVE); UR UROBILINOGEN (Dip) NEGATIVE (NEGATIVE); UR WBC 1 /HPF (0-5)
[2017-11-21 15:02] LABS: CREATININE,URINE RANDOM 73.62 mg/dl (20-370)
[2017-11-21 15:02] LABS: SODIUM,URINE RANDOM 31 mmol/L (30-90)
[2017-11-21 15:33] LABS: HAAIG REFLEX REFLEX FILED
[2017-11-21 16:32] LABS: HEPATITIS B SURFACE ANTIGEN NEGATIVE (NEGATIVE)
[2017-11-21 16:50] LABS: HEPATITIS B CORE ANTIBODY NEGATIVE (NEGATIVE); HEPATITIS C VIRAL ANTIBODY NEGATIVE (NEGATIVE)
[2017-11-21] MEDS: hydrALAzine 20 MG INJ IV (17:31)
[2017-11-21] MEDS: HYDROCODONE/APAP (5/325) TAB PO (17:53)
[2017-11-21] MEDS ORDERED: HYDROCODONE/APAP (5/325) TAB PO (18:00)
[2017-11-21] MEDS: ATORVASTATIN 20 MG TAB PO (20:08)
[2017-11-21] MEDS: INSULIN GLARGINE [LANTus] (100 UNITS/ML) SYG SC (20:12)
[2017-11-22] MEDS: ACCU-CHEK XX (02:00)
[2017-11-22 06:47] LABS: ADD MAN DIFF? NO
[2017-11-22 06:48] LABS: WHITE BLOOD COUNT 12.2 10^3/ul (4.8-10.8)
[2017-11-22 06:48] LABS: BASOPHIL # 0.1 10^3/ul (0.0-0.1); BASOPHILS % 0.6 % (0.0-2.0); EOSINOPHILS # 0.4 10^3/ul (0.0-0.5); EOSINOPHILS % 3.2 % (0.0-7.0); HEMATOCRIT 37.7 % (42.0-52.0); LYMPHOCYTES # 2.6 10^3/ul (0.8-2.9); LYMPHOCYTES % 20.9 % (15.0-51.0); MEAN CORPUSCULAR HEMOGLOBIN 26.3 pg (29.0-33.0); MEAN CORPUSCULAR HGB CONC 31.8 g/dl (32.0-37.0); MEAN CORPUSCULAR VOLUME 82.7 fl (82.0-101.0); MEAN PLATELET VOLUME 10.3 fl (7.4-10.4); MONOCYTES % 7.9 % (0.0-11.0); NEUTROPHIL # 8.2 10^3/ul (1.6-7.5); NEUTROPHILS % 67.1 % (39.0-77.0); PLATELET COUNT 368 10^3/UL (140-415); RED BLOOD COUNT 4.56 10^6/ul (4.70-6.10); RED CELL DISTRIBUTION WIDTH 14.3 % (11.5-14.5)
[2017-11-22 07:11] LABS: ANION GAP 16 (8-16); BLOOD UREA NITROGEN 50 mg/dl (7-20); CALCIUM 8.8 mg/dl (8.4-10.2); CARBON DIOXIDE 20 mmol/L (21-31); CHLORIDE 109 mmol/L (97-110); GLUCOSE 138 mg/dl (70-220); POTASSIUM 5.1 mmol/L (3.5-5.1); SODIUM 140 mmol/L (135-144)
[2017-11-22] MEDS: INSULIN ASPART [NOVOLOG] 3 ML PEN SC ×7 (07:55→20:29)
[2017-11-22] MEDS: AMLODIPINE 5 MG TAB PO ×2 (08:16→20:22)
[2017-11-22] MEDS: GABAPENTIN 100 MG CAP PO ×2 (08:16→20:22)
[2017-11-22] MEDS: COLLAGENASE 5 GM (UD JAR) TOP (08:17)
[2017-11-22 15:05] LABS: RHEUMATOID FACTOR NEGATIVE (NEGATIVE)
[2017-11-22] MEDS: hydrALAzine 20 MG INJ IV (19:17)
[2017-11-22] MEDS: ATORVASTATIN 20 MG TAB PO (20:22)
[2017-11-22] MEDS: INSULIN GLARGINE [LANTus] (100 UNITS/ML) SYG SC (20:31)
[2017-11-23] MEDS: ACCU-CHEK XX (01:52)
[2017-11-23 06:11] LABS: ADD MAN DIFF? NO
[2017-11-23 06:14] LABS: BASOPHIL # 0.1 10^3/ul (0.0-0.1); BASOPHILS % 0.4 % (0.0-2.0); EOSINOPHILS # 0.3 10^3/ul (0.0-0.5); EOSINOPHILS % 2.8 % (0.0-7.0); HEMOGLOBIN 11.2 g/dl (14.0-18.0); MEAN CORPUSCULAR HEMOGLOBIN 26.2 pg (29.0-33.0); MEAN PLATELET VOLUME 10.3 fl (7.4-10.4); MONOCYTES % 8.8 % (0.0-11.0); NEUTROPHIL # 7.9 10^3/ul (1.6-7.5); NEUTROPHILS % 69.6 % (39.0-77.0); PLATELET COUNT 347 10^3/UL (140-415); RED BLOOD COUNT 4.27 10^6/ul (4.70-6.10); RED CELL DISTRIBUTION WIDTH 14.1 % (11.5-14.5)
[2017-11-23 06:14] LABS: WHITE BLOOD COUNT 11.3 10^3/ul (4.8-10.8)
[2017-11-23 07:09] LABS: ANION GAP 15 (8-16); CALCIUM 8.6 mg/dl (8.4-10.2); CARBON DIOXIDE 19 mmol/L (21-31); CHLORIDE 108 mmol/L (97-110); CREATININE 3.63 mg/dl (0.61-1.24); GLUCOSE 131 mg/dl (70-220); POTASSIUM 5.4 mmol/L (3.5-5.1); SODIUM 137 mmol/L (135-144)
[2017-11-23 07:51] LABS: BLOOD UREA NITROGEN 57 mg/dl (7-20)
[2017-11-23] MEDS: INSULIN ASPART [NOVOLOG] 3 ML PEN SC ×7 (08:11→20:24)
[2017-11-23] MEDS: AMLODIPINE 5 MG TAB PO ×2 (08:43→20:20)
[2017-11-23] MEDS: COLLAGENASE 5 GM (UD JAR) TOP ×2 (08:45→09:00)
[2017-11-23] MEDS: GABAPENTIN 100 MG CAP PO ×2 (08:45→20:21)
[2017-11-23] MEDS: NA POLYST SULFON 15 GM/60 ML BTL PO (10:56)
[2017-11-23 13:46] LABS: ANCA SCREEN NEGATIVE (NEGATIVE)
[2017-11-23] MEDS: hydrALAzine 20 MG INJ IV (15:40)
[2017-11-23 16:01] LABS: CREATININE, RANDOM URINE 70 mg/dL (20-320); MICROALBUMIN 201.8 mg/dL; MICROALBUMIN/CREATININE RATIO 2883 (<30); MYELOPEROXIDASE ANTIBODY <1.0 AI; PROTEINASE-3 ANTIBODY <1.0 AI
[2017-11-23 19:52] LABS: ANA SCREEN POSITIVE (NEGATIVE)
[2017-11-23] MEDS: ATORVASTATIN 20 MG TAB PO (20:21)
[2017-11-23] MEDS: INSULIN GLARGINE [LANTus] (100 UNITS/ML) SYG SC (20:25)
[2017-11-24] MEDS: ACCU-CHEK XX (02:00)
[2017-11-24 06:57] LABS: ADD MAN DIFF? NO
[2017-11-24 07:11] LABS: WHITE BLOOD COUNT 10.9 10^3/ul (4.8-10.8)
[2017-11-24 07:11] LABS: BASOPHIL # 0.1 10^3/ul (0.0-0.1); BASOPHILS % 0.5 % (0.0-2.0); EOSINOPHILS # 0.3 10^3/ul (0.0-0.5); EOSINOPHILS % 2.6 % (0.0-7.0); HEMATOCRIT 38.2 % (42.0-52.0); LYMPHOCYTES # 2.4 10^3/ul (0.8-2.9); LYMPHOCYTES % 22.2 % (15.0-51.0); MEAN CORPUSCULAR HEMOGLOBIN 26.3 pg (29.0-33.0); MEAN CORPUSCULAR HGB CONC 31.4 g/dl (32.0-37.0); MEAN CORPUSCULAR VOLUME 83.6 fl (82.0-101.0); MEAN PLATELET VOLUME 10.4 fl (7.4-10.4); NEUTROPHIL # 7.2 10^3/ul (1.6-7.5); NEUTROPHILS % 65.3 % (39.0-77.0); PLATELET COUNT 391 10^3/UL (140-415); RED BLOOD COUNT 4.57 10^6/ul (4.70-6.10); RED CELL DISTRIBUTION WIDTH 14.3 % (11.5-14.5)
[2017-11-24] MEDS: INSULIN ASPART [NOVOLOG] 3 ML PEN SC ×8 (08:00→20:44)
[2017-11-24] MEDS: GABAPENTIN 100 MG CAP PO ×2 (08:06→20:45)
[2017-11-24] MEDS: AMLODIPINE 5 MG TAB PO ×2 (08:07→20:42)
[2017-11-24] MEDS: COLLAGENASE 5 GM (UD JAR) TOP (08:07)
[2017-11-24 08:16] LABS: ANION GAP 17 (8-16); BLOOD UREA NITROGEN 55 mg/dl (7-20); CALCIUM 8.8 mg/dl (8.4-10.2); CARBON DIOXIDE 21 mmol/L (21-31); CHLORIDE 108 mmol/L (97-110); CREATININE 3.69 mg/dl (0.61-1.24); GLUCOSE 144 mg/dl (70-220); POTASSIUM 4.6 mmol/L (3.5-5.1); SODIUM 141 mmol/L (135-144)
[2017-11-24 13:52] LABS: ANTI-DNA (DOUBLE STRANDED) 558 U/mL (< 301)
[2017-11-24 14:36] LABS: ANA PATTERN HOMOGENEOUS
[2017-11-24] MEDS: hydrALAzine 20 MG INJ IV (14:40)
[2017-11-24 20:27] LABS: COMPLEMENT C3 138 mg/dl (88-165)
[2017-11-24] MEDS: INSULIN GLARGINE [LANTus] (100 UNITS/ML) SYG SC (20:44)
[2017-11-24] MEDS: ATORVASTATIN 20 MG TAB PO (20:45)
[2017-11-24 20:46] LABS: COMPLEMENT C4 67 mg/dl (14-44)
[2017-11-25] MEDS: ACCU-CHEK XX (02:46)
[2017-11-25 06:04] LABS: ADD MAN DIFF? NO
[2017-11-25 06:18] LABS: WHITE BLOOD COUNT 10.7 10^3/ul (4.8-10.8)
[2017-11-25 06:18] LABS: BASOPHIL # 0.1 10^3/ul (0.0-0.1); BASOPHILS % 0.6 % (0.0-2.0); EOSINOPHILS # 0.3 10^3/ul (0.0-0.5); EOSINOPHILS % 2.5 % (0.0-7.0); HEMATOCRIT 34.4 % (42.0-52.0); HEMOGLOBIN 11.1 g/dl (14.0-18.0); LYMPHOCYTES # 2.2 10^3/ul (0.8-2.9); LYMPHOCYTES % 20.5 % (15.0-51.0); MEAN CORPUSCULAR HEMOGLOBIN 26.4 pg (29.0-33.0); MEAN CORPUSCULAR HGB CONC 32.3 g/dl (32.0-37.0); MEAN CORPUSCULAR VOLUME 81.9 fl (82.0-101.0); MEAN PLATELET VOLUME 9.9 fl (7.4-10.4); MONOCYTE # 0.9 10^3/ul (0.3-0.9); MONOCYTES % 8.8 % (0.0-11.0); NEUTROPHIL # 7.2 10^3/ul (1.6-7.5); NEUTROPHILS % 67.1 % (39.0-77.0); PLATELET COUNT 344 10^3/UL (140-415); RED CELL DISTRIBUTION WIDTH 14.1 % (11.5-14.5)
[2017-11-25 06:30] LABS: ANION GAP 14 (8-16); BLOOD UREA NITROGEN 58 mg/dl (7-20); CALCIUM 8.5 mg/dl (8.4-10.2); CARBON DIOXIDE 22 mmol/L (21-31); CHLORIDE 110 mmol/L (97-110); CREATININE 3.59 mg/dl (0.61-1.24); GLUCOSE 104 mg/dl (70-220); SODIUM 141 mmol/L (135-144)
[2017-11-25] MEDS: GABAPENTIN 100 MG CAP PO (08:02)
[2017-11-25] MEDS: AMLODIPINE 5 MG TAB PO (08:02)
[2017-11-25] MEDS: COLLAGENASE 5 GM (UD JAR) TOP (08:02)
[2017-11-25] MEDS: INSULIN ASPART [NOVOLOG] 3 ML PEN SC ×4 (08:05→12:00)
== END 2017-11-25 12:40 | disposition home or self-care (01) | DRG 312 ==
LOC: E/R 12:32 → 2NE 11-23 11:53 → TEL 16:26
DX: R55 Syncope and collapse (principal); N17.9 Acute kidney failure, unspecified; N18.4 Chronic kidney disease, stage 4 (severe); I16.0 Hypertensive urgency; I12.9 Hypertensive chronic kidney disease with stage 1 through stage 4 chronic kidney disease, or unspecified chronic kidney disease; E11.621 Type 2 diabetes mellitus with foot ulcer; Z91.14 Patient's other noncompliance with medication regimen; R07.9 Chest pain, unspecified; R51 Headache; S09.90XA Unspecified injury of head, initial encounter
CPT/HCPCS: 36415; 70450; 71045; 76775; 80048; 80053; 80061; 80307; 81001; 81003; 82043; 82550; 82553; 82595; 82962; 83036; 83735; 84100; 84155; 84300; 84484; 85025; 85610; 85730; 86021; 86038; 86160; 86226; 86430; 86704; 86709; 86803; 87340; 93005; 93880; 96374; 96375; 99285-25

== ENCOUNTER 2018-01-09 15:43 | Inpatient (IN) | payer MEDICAID, OTHER ==
[2018-01-09 16:22] LABS: ADD MAN DIFF? NO
[2018-01-09 16:24] LABS: WHITE BLOOD COUNT 11.9 10^3/ul (4.8-10.8)
[2018-01-09 16:24] LABS: BASOPHIL # 0.1 10^3/ul (0.0-0.1); BASOPHILS % 0.4 % (0.0-2.0); EOSINOPHILS # 0.2 10^3/ul (0.0-0.5); EOSINOPHILS % 1.3 % (0.0-7.0); HEMATOCRIT 26.7 % (42.0-52.0); HEMOGLOBIN 8.4 g/dl (14.0-18.0); LYMPHOCYTES # 1.7 10^3/ul (0.8-2.9); LYMPHOCYTES % 14.1 % (15.0-51.0); MEAN CORPUSCULAR HEMOGLOBIN 25.1 pg (29.0-33.0); MEAN CORPUSCULAR HGB CONC 31.5 g/dl (32.0-37.0); MEAN CORPUSCULAR VOLUME 79.7 fl (82.0-101.0); MONOCYTE # 1.1 10^3/ul (0.3-0.9); MONOCYTES % 9.2 % (0.0-11.0); NEUTROPHIL # 8.9 10^3/ul (1.6-7.5); NEUTROPHILS % 74.7 % (39.0-77.0); PLATELET COUNT 279 10^3/UL (140-415); RED BLOOD COUNT 3.35 10^6/ul (4.70-6.10); RED CELL DISTRIBUTION WIDTH 14.6 % (11.5-14.5)
[2018-01-09 16:30] LABS: INR 1.24; PARTIAL THROMBOPLASTIN TIME 45.1 Sec (23.0-35.0); PROTIME 15.8 Sec (11.9-14.9); PT RATIO 1.2
[2018-01-09 16:31] LABS: AADO2 Arterial 165.2 mmHg (7.0-24.0); ANION GAP 9 (5-13); Allen Test ACCEPTAB; Arterial Base Excess -8.7 mmol/L (-3.0-3); Arterial Blood Gas Oxygen Sat 94.5 mmHG (95.0-98.0); Arterial COHb 0.1 % (0.0-3.0); Arterial Fraction of Oxyhgb 94.1 % (93.0-99.0); Arterial HCO3 16.5 mmol/L (22.0-26.0); Arterial MetHb 0.3 % (0.0-1.5); Arterial Total Hemglobin 9.4 g/dl (12.0-18.0); Arterial pCO2 32.9 mmhg (35-45); BLOOD UREA NITROGEN 39 mg/dl (7-20); CALCIUM 7.7 mg/dl (8.4-10.2); CARBON DIOXIDE 16 mmol/L (21-31); CHLORIDE 111 mmol/L (97-110); CREATININE 4.42 mg/dl (0.61-1.24); Estimated GFR 14 mL/min (>60); GLUCOSE 151 mg/dl (70-220); MODE NASAL CANNULA; POTASSIUM 5.5 mmol/L (3.5-5.1); SODIUM 136 mmol/L (135-144); Site Right Radial
[2018-01-09 16:43] LABS: B-TYPE NATRIURETIC PEPTIDE 6370 PG/ML (0-125); TROPONIN-I < 0.012 ng/ml (0.000-0.120)
[2018-01-09] MEDS: FUROSEMIDE 40 MG INJ IV ×2 (17:14→17:15)
[2018-01-09 18:01] LABS: URINE BLOOD (Dip) POC 2+ (NEGATIVE); URINE KETONES (Dip) POC Negative (NEGATIVE); URINE LEUKOCYTE EST (Dip) POC Negative (NEGATIVE); URINE NITRITE (Dip) POC Negative (NEGATIVE); URINE TOTAL PROTEIN POC 3+ (NEGATIVE)
[2018-01-09 18:01] LABS: URINE PH (Dip) POC 5.5 (5.0-8.5)
[2018-01-09] MEDS: ALBUTEROL 0.083% (NEB) 2.5 MG/3 ML AMP HHN (18:17)
[2018-01-09] MEDS: NA POLYST SULFON 15 GM/60 ML BTL PO (18:30)
[2018-01-09] MEDS: LIDOCAINE 2% 20 ML UROJET SYRINGE MM ×2 (18:54)
[2018-01-09] MEDS ORDERED: NACL 0.9% 3 ML SYG IV (19:00)
[2018-01-09] MEDS ORDERED: DEXTROSE 50% 50 ML SYRINGE IV ×2 (19:30)
[2018-01-09] MEDS ORDERED: GLUCAGON 1 MG INJ IM (19:30)
[2018-01-09] MEDS ORDERED: GLUCOSE GEL 15 GRAM TUBE BUCCAL (19:30)
[2018-01-09] MEDS ORDERED: GLUCOSE GEL 15 GRAM TUBE PO ×2 (19:30)
[2018-01-09] MEDS: INSULIN ASPART [NOVOLOG] 3 ML PEN SC (22:15)
[2018-01-09] MEDS ORDERED: HEPARIN 5,000 UNIT/0.5 ML VIAL (22:54)
[2018-01-09] MEDS: ATORVASTATIN 20 MG TAB PO (22:59)
[2018-01-09] MEDS: HEPARIN 5,000 UNIT/1 ML VIAL SC (23:03)
[2018-01-10] MEDS: INSULIN GLARGINE [LANTus] (100 UNITS/ML) SYG SC ×2 (00:09→21:41)
[2018-01-10] MEDS: BUMETANIDE 25 MG in DEXTROSE 5% 150 ML IV ×3 (00:56→21:40)
[2018-01-10 01:47] LABS: AADO2 Arterial 185.4 mmHg (7.0-24.0); Allen Test ACCEPTAB; Arterial Base Excess -9.6 mmol/L (-3.0-3); Arterial Blood Gas Oxygen Sat 88.1 mmHG (95.0-98.0); Arterial COHb 0.3 % (0.0-3.0); Arterial Fraction of Oxyhgb 87.6 % (93.0-99.0); Arterial HCO3 15.8 mmol/L (22.0-26.0); Arterial MetHb 0.3 % (0.0-1.5); Arterial Total Hemglobin 9.9 g/dl (12.0-18.0); Arterial pCO2 32.6 mmhg (35-45); MODE NASAL CANNULA; Site Right Radial
[2018-01-10 06:16] LABS: ADD MAN DIFF? NO
[2018-01-10 06:26] LABS: BASOPHILS % 0.4 % (0.0-2.0); EOSINOPHILS # 0.1 10^3/ul (0.0-0.5); EOSINOPHILS % 0.5 % (0.0-7.0); HEMATOCRIT 24.9 % (42.0-52.0); HEMOGLOBIN 7.8 g/dl (14.0-18.0); LYMPHOCYTES # 1.7 10^3/ul (0.8-2.9); LYMPHOCYTES % 18.2 % (15.0-51.0); MEAN CORPUSCULAR HEMOGLOBIN 24.8 pg (29.0-33.0); MEAN CORPUSCULAR HGB CONC 31.3 g/dl (32.0-37.0); MEAN PLATELET VOLUME 10.2 fl (7.4-10.4); MONOCYTE # 0.8 10^3/ul (0.3-0.9); MONOCYTES % 8.5 % (0.0-11.0); NEUTROPHIL # 6.7 10^3/ul (1.6-7.5); PLATELET COUNT 260 10^3/UL (140-415); RED BLOOD COUNT 3.15 10^6/ul (4.70-6.10); RED CELL DISTRIBUTION WIDTH 14.7 % (11.5-14.5)
[2018-01-10 06:26] LABS: WHITE BLOOD COUNT 9.3 10^3/ul (4.8-10.8)
[2018-01-10 06:45] LABS: IRON 15 ug/dl (35-150)
[2018-01-10 06:54] LABS: % IRON SATURATION 6 % SAT (22-52); TOTAL IRON BINDING CAPACITY 235 ug/dl (241-421)
[2018-01-10 07:26] LABS: ALANINE AMINOTRANSFERASE 12 IU/L (13-69); ALBUMIN 3.2 g/dl (3.3-4.9); ALBUMIN/GLOBULIN RATIO 0.69; ALKALINE PHOSPHATASE 105 IU/L (42-121); ANION GAP 9 (5-13); ASPARTATE AMINO TRANSFERASE 18 IU/L (15-46); BILIRUBIN,INDIRECT 0.2 mg/dl (0-1.1); BILIRUBIN,TOTAL 0.2 mg/dl (0.2-1.3); BLOOD UREA NITROGEN 41 mg/dl (7-20); CALCIUM 7.6 mg/dl (8.4-10.2); CARBON DIOXIDE 16 mmol/L (21-31); CHLORIDE 114 mmol/L (97-110); CREATININE 4.77 mg/dl (0.61-1.24); Estimated GFR 13 mL/min (>60); GLUCOSE 96 mg/dl (70-220); MAGNESIUM 1.9 mg/dl (1.7-2.5); POTASSIUM 4.4 mmol/L (3.5-5.1); SODIUM 139 mmol/L (135-144); TOTAL PROTEIN 7.8 g/dl (6.1-8.1)
[2018-01-10] MEDS: INSULIN ASPART [NOVOLOG] 3 ML PEN SC ×7 (07:51→21:00)
[2018-01-10] MEDS ORDERED: HEPARIN 5,000 UNIT/0.5 ML VIAL ×2 (08:16→21:44)
[2018-01-10] MEDS: AMLODIPINE 10 MG TAB PO (08:25)
[2018-01-10] MEDS: HEPARIN 5,000 UNIT/1 ML VIAL SC ×2 (08:32→21:46)
[2018-01-10 10:09] LABS: HEMOGLOBIN A1C 6.7 % (0-5.9)
[2018-01-10] MEDS: ACARBOSE 50 MG TAB PO ×3 (10:40→17:10)
[2018-01-10] MEDS: METOLAZONE 5 MG TAB PO (10:41)
[2018-01-10] MEDS: HEPARIN 1000 UNITS/ML 10 ML INJ (11:45)
[2018-01-10] MEDS: SOD FERRIC GLUC COMPLX 125 MG in SOD CHLORIDE 0.9% 100 ML IVPB (17:11)
[2018-01-10 20:40] LABS: HEPATITIS B SURFACE ANTIGEN NEGATIVE (NEGATIVE)
[2018-01-10] MEDS: ATORVASTATIN 20 MG TAB PO (21:40)
[2018-01-11] MEDS: HEPARIN 1000 UNITS/ML 10 ML INJ CATHETER ×2 (00:45→13:43)
[2018-01-11 06:12] LABS: ADD MAN DIFF? NO
[2018-01-11 06:20] LABS: WHITE BLOOD COUNT 8.2 10^3/ul (4.8-10.8)
[2018-01-11 06:20] LABS: BASOPHILS % 0.4 % (0.0-2.0); EOSINOPHILS # 0.2 10^3/ul (0.0-0.5); EOSINOPHILS % 2.1 % (0.0-7.0); HEMATOCRIT 24.8 % (42.0-52.0); LYMPHOCYTES # 1.5 10^3/ul (0.8-2.9); LYMPHOCYTES % 18.3 % (15.0-51.0); MEAN CORPUSCULAR HEMOGLOBIN 24.9 pg (29.0-33.0); MEAN CORPUSCULAR HGB CONC 32.3 g/dl (32.0-37.0); MEAN CORPUSCULAR VOLUME 77.3 fl (82.0-101.0); MEAN PLATELET VOLUME 9.7 fl (7.4-10.4); MONOCYTE # 0.8 10^3/ul (0.3-0.9); MONOCYTES % 10.2 % (0.0-11.0); NEUTROPHIL # 5.7 10^3/ul (1.6-7.5); NEUTROPHILS % 68.6 % (39.0-77.0); PLATELET COUNT 266 10^3/UL (140-415); RED BLOOD COUNT 3.21 10^6/ul (4.70-6.10); RED CELL DISTRIBUTION WIDTH 14.5 % (11.5-14.5)
[2018-01-11 06:56] LABS: ANION GAP 11 (5-13); BLOOD UREA NITROGEN 30 mg/dl (7-20); CALCIUM 7.4 mg/dl (8.4-10.2); CARBON DIOXIDE 23 mmol/L (21-31); CHLORIDE 105 mmol/L (97-110); CREATININE 3.79 mg/dl (0.61-1.24); Estimated GFR 16 mL/min (>60); GLUCOSE 83 mg/dl (70-220); MAGNESIUM 1.7 mg/dl (1.7-2.5); POTASSIUM 3.3 mmol/L (3.5-5.1); SODIUM 139 mmol/L (135-144)
[2018-01-11] MEDS ORDERED: HEPARIN 5,000 UNIT/0.5 ML VIAL ×2 (07:46→20:11)
[2018-01-11] MEDS: INSULIN ASPART [NOVOLOG] 3 ML PEN SC ×7 (07:55→20:03)
[2018-01-11] MEDS: BUMETANIDE 25 MG in DEXTROSE 5% 150 ML IV ×2 (07:56→20:51)
[2018-01-11] MEDS: ACARBOSE 50 MG TAB PO ×3 (07:56→17:46)
[2018-01-11] MEDS: POTASSIUM CHLORIDE (SR) 20 MEQ TAB PO (07:58)
[2018-01-11] MEDS: METOLAZONE 5 MG TAB PO (08:01)
[2018-01-11] MEDS: AMLODIPINE 10 MG TAB PO (08:01)
[2018-01-11] MEDS: HEPARIN 5,000 UNIT/1 ML VIAL SC ×2 (08:09→20:59)
[2018-01-11 09:45] LABS: ERYTHROCYTE SEDIMENTATION RATE 130 mm/Hr (0-20)
[2018-01-11 10:15] LABS: ADD UMIC YES; UR ASCORBIC ACID NEGATIVE (NEGATIVE); UR BACTERIA FEW /HPF (NONE SEEN); UR BILIRUBIN (Dip) NEGATIVE (NEGATIVE); UR BLOOD (Dip) 1+ mg/dL (NEGATIVE); UR CLARITY CLEAR (CLEAR); UR COLOR COLORLESS (YELLOW); UR GLUCOSE (Dip) 1+ mg/dL (NEGATIVE); UR KETONES (Dip) NEGATIVE (NEGATIVE); UR LEUKOCYTE ESTERASE (Dip) NEGATIVE Leu/ul (NEGATIVE); UR NITRITE (Dip) NEGATIVE (NEGATIVE); UR RBC 5 /HPF (0-5); UR SPECIFIC GRAVITY (Dip) 1.006 (1.003-1.030); UR TOTAL PROTEIN (Dip) 2+ mg/dl (NEGATIVE); UR UROBILINOGEN (Dip) NEGATIVE (NEGATIVE); UR WBC 0 /HPF (0-5)
[2018-01-11 10:30] LABS: SODIUM,URINE RANDOM 110 mmol/L (30-90)
[2018-01-11] MEDS: SOD FERRIC GLUC COMPLX 125 MG in SOD CHLORIDE 0.9% 100 ML IVPB (16:08)
[2018-01-11] MEDS: INSULIN GLARGINE [LANTus] (100 UNITS/ML) SYG SC (20:00)
[2018-01-11] MEDS: ATORVASTATIN 20 MG TAB PO (20:50)
[2018-01-12 06:12] LABS: ADD MAN DIFF? NO
[2018-01-12 06:21] LABS: BASOPHILS % 0.4 % (0.0-2.0); EOSINOPHILS # 0.3 10^3/ul (0.0-0.5); EOSINOPHILS % 3.3 % (0.0-7.0); HEMATOCRIT 26.5 % (42.0-52.0); HEMOGLOBIN 8.5 g/dl (14.0-18.0); LYMPHOCYTES # 1.6 10^3/ul (0.8-2.9); LYMPHOCYTES % 20.8 % (15.0-51.0); MEAN CORPUSCULAR HGB CONC 32.1 g/dl (32.0-37.0); MEAN CORPUSCULAR VOLUME 77.9 fl (82.0-101.0); MEAN PLATELET VOLUME 10.4 fl (7.4-10.4); MONOCYTES % 13.4 % (0.0-11.0); NEUTROPHIL # 4.7 10^3/ul (1.6-7.5); NEUTROPHILS % 61.7 % (39.0-77.0); PLATELET COUNT 303 10^3/UL (140-415); RED CELL DISTRIBUTION WIDTH 14.5 % (11.5-14.5)
[2018-01-12 06:21] LABS: WHITE BLOOD COUNT 7.7 10^3/ul (4.8-10.8)
[2018-01-12 07:03] LABS: ANION GAP 9 (5-13); BLOOD UREA NITROGEN 28 mg/dl (7-20); CALCIUM 7.5 mg/dl (8.4-10.2); CARBON DIOXIDE 27 mmol/L (21-31); CHLORIDE 103 mmol/L (97-110); CREATININE 3.93 mg/dl (0.61-1.24); Estimated GFR 16 mL/min (>60); GLUCOSE 90 mg/dl (70-220); MAGNESIUM 1.7 mg/dl (1.7-2.5); PHOSPHORUS 4.5 mg/dl (2.5-4.9); POTASSIUM 4.1 mmol/L (3.5-5.1); SODIUM 139 mmol/L (135-144)
[2018-01-12] MEDS: INSULIN ASPART [NOVOLOG] 3 ML PEN SC ×7 (07:40→20:03)
[2018-01-12] MEDS ORDERED: HEPARIN 5,000 UNIT/0.5 ML VIAL ×2 (08:16→19:49)
[2018-01-12] MEDS: METOLAZONE 5 MG TAB PO (08:24)
[2018-01-12] MEDS: ACARBOSE 50 MG TAB PO ×3 (08:25→17:38)
[2018-01-12] MEDS: AMLODIPINE 10 MG TAB PO (08:25)
[2018-01-12 08:36] LABS: HAAIG REFLEX REFLEX FILED
[2018-01-12] MEDS: HEPARIN 5,000 UNIT/1 ML VIAL SC ×2 (08:58→20:15)
[2018-01-12 09:38] LABS: HEPATITIS B SURFACE ANTIGEN NEGATIVE (NEGATIVE)
[2018-01-12 09:57] LABS: HEPATITIS C VIRAL ANTIBODY NEGATIVE (NEGATIVE)
[2018-01-12 10:08] LABS: COMPLEMENT C3 119 mg/dl (88-165); COMPLEMENT C4 70 mg/dl (14-44)
[2018-01-12 10:38] LABS: HEPATITIS B CORE ANTIBODY NEGATIVE (NEGATIVE)
[2018-01-12 15:16] LABS: RHEUMATOID FACTOR NEGATIVE (NEGATIVE)
[2018-01-12] MEDS: HEPARIN 1000 UNITS/ML 10 ML INJ CATHETER (16:46)
[2018-01-12] MEDS: SOD FERRIC GLUC COMPLX 125 MG in SOD CHLORIDE 0.9% 100 ML IVPB (16:49)
[2018-01-12 16:56] LABS: CREATININE, RANDOM URINE 19 mg/dL (20-320); MICROALBUMIN 84.5 mg/dL; MICROALBUMIN/CREATININE RATIO 4447 (<30)
[2018-01-12] MEDS: BUMETANIDE 1 MG INJ IV (17:47)
[2018-01-12] MEDS: ATORVASTATIN 20 MG TAB PO (20:03)
[2018-01-12] MEDS: INSULIN GLARGINE [LANTus] (100 UNITS/ML) SYG SC (20:15)
[2018-01-13] MEDS: BUMETANIDE 1 MG INJ IV ×2 (05:05→17:15)
[2018-01-13 06:10] LABS: ADD MAN DIFF? NO
[2018-01-13 06:23] LABS: BASOPHILS % 0.5 % (0.0-2.0); EOSINOPHILS # 0.3 10^3/ul (0.0-0.5); EOSINOPHILS % 3.5 % (0.0-7.0); HEMATOCRIT 29.6 % (42.0-52.0); HEMOGLOBIN 9.2 g/dl (14.0-18.0); LYMPHOCYTES # 1.6 10^3/ul (0.8-2.9); LYMPHOCYTES % 22.1 % (15.0-51.0); MEAN CORPUSCULAR HEMOGLOBIN 24.4 pg (29.0-33.0); MEAN CORPUSCULAR HGB CONC 31.1 g/dl (32.0-37.0); MEAN CORPUSCULAR VOLUME 78.5 fl (82.0-101.0); MEAN PLATELET VOLUME 10.3 fl (7.4-10.4); MONOCYTE # 1.1 10^3/ul (0.3-0.9); MONOCYTES % 14.7 % (0.0-11.0); NEUTROPHIL # 4.4 10^3/ul (1.6-7.5); NEUTROPHILS % 58.9 % (39.0-77.0); PLATELET COUNT 305 10^3/UL (140-415); RED BLOOD COUNT 3.77 10^6/ul (4.70-6.10); RED CELL DISTRIBUTION WIDTH 14.3 % (11.5-14.5)
[2018-01-13 06:23] LABS: WHITE BLOOD COUNT 7.4 10^3/ul (4.8-10.8)
[2018-01-13 06:44] LABS: ANION GAP 9 (5-13); BLOOD UREA NITROGEN 22 mg/dl (7-20); CALCIUM 7.9 mg/dl (8.4-10.2); CARBON DIOXIDE 29 mmol/L (21-31); CHLORIDE 100 mmol/L (97-110); CREATININE 3.82 mg/dl (0.61-1.24); Estimated GFR 16 mL/min (>60); GLUCOSE 97 mg/dl (70-220); MAGNESIUM 1.8 mg/dl (1.7-2.5); POTASSIUM 4.1 mmol/L (3.5-5.1); SODIUM 138 mmol/L (135-144)
[2018-01-13] MEDS ORDERED: HEPARIN 5,000 UNIT/0.5 ML VIAL ×2 (07:36→20:06)
[2018-01-13] MEDS: INSULIN ASPART [NOVOLOG] 3 ML PEN SC ×7 (07:45→20:19)
[2018-01-13] MEDS: ACARBOSE 50 MG TAB PO ×3 (07:55→17:15)
[2018-01-13] MEDS: AMLODIPINE 10 MG TAB PO (07:58)
[2018-01-13] MEDS: HEPARIN 5,000 UNIT/1 ML VIAL SC ×2 (08:01→20:27)
[2018-01-13 13:41] LABS: ANCA SCREEN NEGATIVE (NEGATIVE)
[2018-01-13 15:11] LABS: MYELOPEROXIDASE ANTIBODY <1.0 AI; PROTEINASE-3 ANTIBODY <1.0 AI
[2018-01-13] MEDS: SOD FERRIC GLUC COMPLX 125 MG in SOD CHLORIDE 0.9% 100 ML IVPB (17:15)
[2018-01-13 17:31] LABS: ANTI-DNA (DOUBLE STRANDED) 434 U/mL (< 301)
[2018-01-13] MEDS: ATORVASTATIN 20 MG TAB PO (20:18)
[2018-01-13] MEDS: INSULIN GLARGINE [LANTus] (100 UNITS/ML) SYG SC (20:26)
[2018-01-14] MEDS: BUMETANIDE 1 MG INJ IV ×2 (05:45→17:17)
[2018-01-14] MEDS ORDERED: HEPARIN 5,000 UNIT/0.5 ML VIAL ×2 (07:25→19:59)
[2018-01-14] MEDS: INSULIN ASPART [NOVOLOG] 3 ML PEN SC ×7 (07:42→20:26)
[2018-01-14] MEDS: ACARBOSE 50 MG TAB PO ×3 (07:50→17:17)
[2018-01-14] MEDS: AMLODIPINE 10 MG TAB PO (07:51)
[2018-01-14] MEDS: UREA 40% CR 7OZ TOP (07:52)
[2018-01-14] MEDS: HEPARIN 5,000 UNIT/1 ML VIAL SC ×2 (07:53→20:26)
[2018-01-14] MEDS: SOD FERRIC GLUC COMPLX 125 MG in SOD CHLORIDE 0.9% 100 ML IVPB (17:17)
[2018-01-14] MEDS: ATORVASTATIN 20 MG TAB PO (20:09)
[2018-01-14] MEDS: INSULIN GLARGINE [LANTus] (100 UNITS/ML) SYG SC (20:18)
[2018-01-14] MEDS: NEOMYC/POLYMYX/BACIT 30 GM OINT TOP (20:26)
[2018-01-14] MEDS: HEPARIN 1000 UNITS/ML 10 ML INJ CATHETER (22:24)
[2018-01-15] MEDS: BUMETANIDE 1 MG INJ IV ×2 (06:09→19:05)
[2018-01-15 07:30] LABS: ADD MAN DIFF? NO
[2018-01-15 07:32] LABS: WHITE BLOOD COUNT 7.7 10^3/ul (4.8-10.8)
[2018-01-15 07:32] LABS: BASOPHILS % 0.5 % (0.0-2.0); EOSINOPHILS # 0.3 10^3/ul (0.0-0.5); EOSINOPHILS % 3.9 % (0.0-7.0); HEMATOCRIT 29.5 % (42.0-52.0); HEMOGLOBIN 9.3 g/dl (14.0-18.0); LYMPHOCYTES # 1.7 10^3/ul (0.8-2.9); LYMPHOCYTES % 22.6 % (15.0-51.0); MEAN CORPUSCULAR HEMOGLOBIN 24.5 pg (29.0-33.0); MEAN CORPUSCULAR HGB CONC 31.5 g/dl (32.0-37.0); MEAN CORPUSCULAR VOLUME 77.6 fl (82.0-101.0); MEAN PLATELET VOLUME 9.7 fl (7.4-10.4); MONOCYTES % 12.8 % (0.0-11.0); NEUTROPHIL # 4.6 10^3/ul (1.6-7.5); NEUTROPHILS % 59.7 % (39.0-77.0); PLATELET COUNT 294 10^3/UL (140-415); RED CELL DISTRIBUTION WIDTH 14.4 % (11.5-14.5)
[2018-01-15] MEDS: INSULIN ASPART [NOVOLOG] 3 ML PEN SC ×7 (07:49→21:00)
[2018-01-15 07:52] LABS: ANION GAP 11 (5-13); BLOOD UREA NITROGEN 21 mg/dl (7-20); CALCIUM 8.2 mg/dl (8.4-10.2); CARBON DIOXIDE 31 mmol/L (21-31); CHLORIDE 92 mmol/L (97-110); CREATININE 3.67 mg/dl (0.61-1.24); Estimated GFR 17 mL/min (>60); GLUCOSE 105 mg/dl (70-220); POTASSIUM 4.2 mmol/L (3.5-5.1); SODIUM 134 mmol/L (135-144)
[2018-01-15] MEDS ORDERED: HEPARIN 5,000 UNIT/0.5 ML VIAL ×2 (08:09→20:49)
[2018-01-15] MEDS: ACARBOSE 50 MG TAB PO ×3 (08:22→19:05)
[2018-01-15] MEDS: AMLODIPINE 10 MG TAB PO (08:23)
[2018-01-15] MEDS: NEOMYC/POLYMYX/BACIT 30 GM OINT TOP ×2 (08:25→21:15)
[2018-01-15] MEDS: UREA 40% CR 7OZ TOP (08:26)
[2018-01-15] MEDS: HEPARIN 5,000 UNIT/1 ML VIAL SC ×2 (08:36→21:02)
[2018-01-15 17:21] LABS: ANA SCREEN POSITIVE (NEGATIVE)
[2018-01-15 18:51] LABS: ANA PATTERN HOMOGENEOUS
[2018-01-15] MEDS: ATORVASTATIN 20 MG TAB PO (21:00)
[2018-01-15] MEDS: INSULIN GLARGINE [LANTus] (100 UNITS/ML) SYG SC (21:07)
[2018-01-15] MEDS ORDERED: VITAMIN A & D 5 GM OINT PACKET TOP (21:20)
[2018-01-16 05:00] LABS: ADD MAN DIFF? NO
[2018-01-16] MEDS: BUMETANIDE 1 MG INJ IV ×2 (05:13→17:53)
[2018-01-16 05:36] LABS: ANION GAP 11 (5-13); BLOOD UREA NITROGEN 31 mg/dl (7-20); CALCIUM 8.1 mg/dl (8.4-10.2); CARBON DIOXIDE 31 mmol/L (21-31); CHLORIDE 89 mmol/L (97-110); Estimated GFR 13 mL/min (>60); GLUCOSE 97 mg/dl (70-220); MAGNESIUM 1.9 mg/dl (1.7-2.5); SODIUM 131 mmol/L (135-144)
[2018-01-16 07:22] LABS: BASOPHIL # 0.1 10^3/ul (0.0-0.1); BASOPHILS % 0.6 % (0.0-2.0); EOSINOPHILS # 0.3 10^3/ul (0.0-0.5); EOSINOPHILS % 3.9 % (0.0-7.0); HEMATOCRIT 28.9 % (42.0-52.0); HEMOGLOBIN 9.3 g/dl (14.0-18.0); LYMPHOCYTES # 2.3 10^3/ul (0.8-2.9); LYMPHOCYTES % 28.7 % (15.0-51.0); MEAN CORPUSCULAR HEMOGLOBIN 24.9 pg (29.0-33.0); MEAN CORPUSCULAR HGB CONC 32.2 g/dl (32.0-37.0); MEAN CORPUSCULAR VOLUME 77.3 fl (82.0-101.0); MEAN PLATELET VOLUME 9.9 fl (7.4-10.4); MONOCYTES % 12.1 % (0.0-11.0); NEUTROPHIL # 4.4 10^3/ul (1.6-7.5); NEUTROPHILS % 54.3 % (39.0-77.0); PLATELET COUNT 297 10^3/UL (140-415); RED BLOOD COUNT 3.74 10^6/ul (4.70-6.10); RED CELL DISTRIBUTION WIDTH 14.3 % (11.5-14.5)
[2018-01-16] MEDS ORDERED: HEPARIN 5,000 UNIT/0.5 ML VIAL ×2 (08:33→20:46)
[2018-01-16] MEDS: ACARBOSE 50 MG TAB PO ×3 (08:43→17:53)
[2018-01-16] MEDS: INSULIN ASPART [NOVOLOG] 3 ML PEN SC ×7 (08:44→20:59)
[2018-01-16] MEDS: HEPARIN 5,000 UNIT/1 ML VIAL SC ×2 (08:45→20:58)
[2018-01-16] MEDS: UREA 40% CR 7OZ TOP (09:00)
[2018-01-16] MEDS: HEPARIN 1000 UNITS/ML 10 ML INJ CATHETER (12:23)
[2018-01-16] MEDS ORDERED: HEPARIN 1000 UNITS/ML 10 ML INJ (13:30)
[2018-01-16] MEDS ORDERED: LIDOCAINE 2% (MDV) 20 ML INJ (13:30)
[2018-01-16] MEDS: AMLODIPINE 10 MG TAB PO (14:10)
[2018-01-16] MEDS: NEOMYC/POLYMYX/BACIT 30 GM OINT TOP ×2 (16:33→21:02)
[2018-01-16] MEDS: ATORVASTATIN 20 MG TAB PO (20:58)
[2018-01-16] MEDS: INSULIN GLARGINE [LANTus] (100 UNITS/ML) SYG SC (20:58)
[2018-01-17] MEDS: BUMETANIDE 1 MG INJ IV ×2 (05:56→17:33)
[2018-01-17] MEDS: INSULIN ASPART [NOVOLOG] 3 ML PEN SC ×7 (08:30→20:35)
[2018-01-17] MEDS ORDERED: HEPARIN 5,000 UNIT/0.5 ML VIAL ×2 (08:40→20:27)
[2018-01-17] MEDS: ACARBOSE 50 MG TAB PO ×3 (08:54→17:31)
[2018-01-17] MEDS: AMLODIPINE 10 MG TAB PO (08:55)
[2018-01-17] MEDS: HEPARIN 5,000 UNIT/1 ML VIAL SC ×2 (08:56→20:34)
[2018-01-17] MEDS: NEOMYC/POLYMYX/BACIT 30 GM OINT TOP ×2 (12:10→20:36)
[2018-01-17] MEDS: UREA 40% CR 7OZ TOP (12:11)
[2018-01-17] MEDS: INSULIN GLARGINE [LANTus] (100 UNITS/ML) SYG SC (20:34)
[2018-01-17] MEDS: ATORVASTATIN 20 MG TAB PO (20:35)
[2018-01-18] MEDS: BUMETANIDE 1 MG INJ IV ×2 (06:00→17:51)
[2018-01-18 09:17] LABS: % CRYOCRIT NONE DETECTED (NONE DETECTED)
[2018-01-18] MEDS: INSULIN ASPART [NOVOLOG] 3 ML PEN SC ×7 (09:29→20:24)
[2018-01-18] MEDS ORDERED: HEPARIN 5,000 UNIT/0.5 ML VIAL ×2 (09:59→20:07)
[2018-01-18] MEDS: HEPARIN 1000 UNITS/ML 10 ML INJ CATHETER (10:12)
[2018-01-18] MEDS: HEPARIN 5,000 UNIT/1 ML VIAL SC ×2 (10:17→20:20)
[2018-01-18] MEDS: ACARBOSE 50 MG TAB PO ×3 (10:19→17:53)
[2018-01-18] MEDS: AMLODIPINE 10 MG TAB PO (10:19)
[2018-01-18] MEDS: NEOMYC/POLYMYX/BACIT 30 GM OINT TOP ×2 (10:21→20:25)
[2018-01-18] MEDS: UREA 40% CR 7OZ TOP (10:21)
[2018-01-18] MEDS: INSULIN GLARGINE [LANTus] (100 UNITS/ML) SYG SC (20:20)
[2018-01-18] MEDS: ATORVASTATIN 20 MG TAB PO (20:21)
[2018-01-19 05:25] LABS: ADD MAN DIFF? NO
[2018-01-19 05:32] LABS: BASOPHIL # 0.1 10^3/ul (0.0-0.1); BASOPHILS % 0.6 % (0.0-2.0); EOSINOPHILS # 0.4 10^3/ul (0.0-0.5); EOSINOPHILS % 3.5 % (0.0-7.0); HEMOGLOBIN 9.1 g/dl (14.0-18.0); LYMPHOCYTES # 3.1 10^3/ul (0.8-2.9); LYMPHOCYTES % 28.8 % (15.0-51.0); MEAN CORPUSCULAR HEMOGLOBIN 24.8 pg (29.0-33.0); MEAN CORPUSCULAR HGB CONC 31.4 g/dl (32.0-37.0); MEAN PLATELET VOLUME 10.4 fl (7.4-10.4); MONOCYTE # 1.3 10^3/ul (0.3-0.9); MONOCYTES % 12.4 % (0.0-11.0); NEUTROPHIL # 5.9 10^3/ul (1.6-7.5); NEUTROPHILS % 54.2 % (39.0-77.0); PLATELET COUNT 291 10^3/UL (140-415); RED BLOOD COUNT 3.67 10^6/ul (4.70-6.10); RED CELL DISTRIBUTION WIDTH 14.6 % (11.5-14.5)
[2018-01-19 05:32] LABS: WHITE BLOOD COUNT 10.8 10^3/ul (4.8-10.8)
[2018-01-19] MEDS: BUMETANIDE 1 MG INJ IV (06:27)
[2018-01-19 06:33] LABS: ANION GAP 14 (5-13); BLOOD UREA NITROGEN 32 mg/dl (7-20); CALCIUM 8.1 mg/dl (8.4-10.2); CARBON DIOXIDE 27 mmol/L (21-31); CHLORIDE 97 mmol/L (97-110); CREATININE 4.04 mg/dl (0.61-1.24); Estimated GFR 15 mL/min (>60); GLUCOSE 97 mg/dl (70-220); MAGNESIUM 2.1 mg/dl (1.7-2.5); PHOSPHORUS 5.6 mg/dl (2.5-4.9); POTASSIUM 4.1 mmol/L (3.5-5.1); SODIUM 138 mmol/L (135-144)
[2018-01-19] MEDS: INSULIN ASPART [NOVOLOG] 3 ML PEN SC ×7 (07:50→20:26)
[2018-01-19] MEDS ORDERED: HEPARIN 5,000 UNIT/0.5 ML VIAL ×2 (08:00→20:09)
[2018-01-19] MEDS: AMLODIPINE 10 MG TAB PO (08:23)
[2018-01-19] MEDS: ACARBOSE 50 MG TAB PO ×3 (08:25→18:11)
[2018-01-19] MEDS: HEPARIN 5,000 UNIT/1 ML VIAL SC ×2 (08:29→20:26)
[2018-01-19] MEDS: UREA 40% CR 7OZ TOP (08:33)
[2018-01-19] MEDS: NEOMYC/POLYMYX/BACIT 30 GM OINT TOP ×2 (08:33→20:22)
[2018-01-19] MEDS: SEVELAMER CARBONATE 800 MG TABLET PO ×2 (12:35→17:44)
[2018-01-19] MEDS: MULTIVIT/CA CARB/B CMPLX/FA TAB PO (12:35)
[2018-01-19] MEDS: ATORVASTATIN 20 MG TAB PO (20:19)
[2018-01-19] MEDS: INSULIN GLARGINE [LANTus] (100 UNITS/ML) SYG SC (20:25)
[2018-01-20] MEDS: INSULIN ASPART [NOVOLOG] 3 ML PEN SC ×7 (07:50→20:40)
[2018-01-20] MEDS ORDERED: HEPARIN 5,000 UNIT/0.5 ML VIAL ×2 (08:28→20:27)
[2018-01-20] MEDS: HEPARIN 5,000 UNIT/1 ML VIAL SC ×2 (08:45→20:40)
[2018-01-20] MEDS: MULTIVIT/CA CARB/B CMPLX/FA TAB PO (08:45)
[2018-01-20] MEDS: SEVELAMER CARBONATE 800 MG TABLET PO ×3 (08:45→17:52)
[2018-01-20] MEDS: AMLODIPINE 10 MG TAB PO (08:46)
[2018-01-20] MEDS: NEOMYC/POLYMYX/BACIT 30 GM OINT TOP ×2 (10:20→20:45)
[2018-01-20] MEDS: UREA 40% CR 7OZ TOP (10:21)
[2018-01-20] MEDS: HEPARIN 1000 UNITS/ML 10 ML INJ CATHETER (18:56)
[2018-01-20] MEDS: EPOETIN 3000 UNITS/1 ML INJ (ESRD) SC (18:59)
[2018-01-20] MEDS: ATORVASTATIN 20 MG TAB PO (20:38)
[2018-01-20] MEDS: INSULIN GLARGINE [LANTus] (100 UNITS/ML) SYG SC (20:40)
[2018-01-21] MEDS ORDERED: HEPARIN 5,000 UNIT/0.5 ML VIAL ×2 (08:49→19:57)
[2018-01-21] MEDS: SEVELAMER CARBONATE 800 MG TABLET PO ×3 (08:57→18:19)
[2018-01-21] MEDS: MULTIVIT/CA CARB/B CMPLX/FA TAB PO (08:58)
[2018-01-21] MEDS: AMLODIPINE 10 MG TAB PO (09:01)
[2018-01-21] MEDS: HEPARIN 5,000 UNIT/1 ML VIAL SC ×2 (09:03→20:46)
[2018-01-21] MEDS: INSULIN ASPART [NOVOLOG] 3 ML PEN SC ×7 (09:04→20:46)
[2018-01-21] MEDS: NEOMYC/POLYMYX/BACIT 30 GM OINT TOP ×2 (09:05→20:48)
[2018-01-21] MEDS: UREA 40% CR 7OZ TOP (09:06)
[2018-01-21] MEDS: INSULIN GLARGINE [LANTus] (100 UNITS/ML) SYG SC (20:45)
[2018-01-21] MEDS: ATORVASTATIN 20 MG TAB PO (20:48)
[2018-01-22] MEDS: INSULIN ASPART [NOVOLOG] 3 ML PEN SC ×7 (07:50→20:43)
[2018-01-22] MEDS ORDERED: HEPARIN 5,000 UNIT/0.5 ML VIAL ×2 (08:13→20:08)
[2018-01-22] MEDS: SEVELAMER CARBONATE 800 MG TABLET PO ×3 (08:48→18:59)
[2018-01-22] MEDS: MULTIVIT/CA CARB/B CMPLX/FA TAB PO (08:48)
[2018-01-22] MEDS: HEPARIN 5,000 UNIT/1 ML VIAL SC ×2 (08:50→20:50)
[2018-01-22] MEDS: AMLODIPINE 10 MG TAB PO (09:00)
[2018-01-22] MEDS: UREA 40% CR 7OZ TOP (09:48)
[2018-01-22] MEDS: NEOMYC/POLYMYX/BACIT 30 GM OINT TOP ×2 (09:48→20:51)
[2018-01-22] MEDS: HEPARIN 1000 UNITS/ML 10 ML INJ CATHETER (14:28)
[2018-01-22] MEDS: INSULIN GLARGINE [LANTus] (100 UNITS/ML) SYG SC ×2 (20:00)
[2018-01-22] MEDS: ATORVASTATIN 20 MG TAB PO (20:43)
[2018-01-23 05:12] LABS: ADD MAN DIFF? NO; BASOPHIL # 0.1 10^3/ul (0.0-0.1); BASOPHILS % 0.6 % (0.0-2.0); EOSINOPHILS # 0.3 10^3/ul (0.0-0.5); EOSINOPHILS % 3.2 % (0.0-7.0); HEMATOCRIT 28.9 % (42.0-52.0); HEMOGLOBIN 9.2 g/dl (14.0-18.0); LYMPHOCYTES # 2.6 10^3/ul (0.8-2.9); LYMPHOCYTES % 27.6 % (15.0-51.0); MEAN CORPUSCULAR HEMOGLOBIN 25.3 pg (29.0-33.0); MEAN CORPUSCULAR HGB CONC 31.8 g/dl (32.0-37.0); MEAN CORPUSCULAR VOLUME 79.4 fl (82.0-101.0); MEAN PLATELET VOLUME 10.1 fl (7.4-10.4); NEUTROPHIL # 5.4 10^3/ul (1.6-7.5); NEUTROPHILS % 57.3 % (39.0-77.0); PLATELET COUNT 309 10^3/UL (140-415); RED BLOOD COUNT 3.64 10^6/ul (4.70-6.10); RED CELL DISTRIBUTION WIDTH 15.1 % (11.5-14.5)
[2018-01-23 05:12] LABS: WHITE BLOOD COUNT 9.5 10^3/ul (4.8-10.8)
[2018-01-23 06:13] LABS: ANION GAP 10 (5-13); BLOOD UREA NITROGEN 23 mg/dl (7-20); CALCIUM 8.5 mg/dl (8.4-10.2); CARBON DIOXIDE 28 mmol/L (21-31); CHLORIDE 98 mmol/L (97-110); CREATININE 3.45 mg/dl (0.61-1.24); Estimated GFR 18 mL/min (>60); GLUCOSE 111 mg/dl (70-220); MAGNESIUM 2.1 mg/dl (1.7-2.5); PHOSPHORUS 4.2 mg/dl (2.5-4.9); POTASSIUM 4.2 mmol/L (3.5-5.1); SODIUM 136 mmol/L (135-144)
[2018-01-23] MEDS: INSULIN ASPART [NOVOLOG] 3 ML PEN SC ×7 (07:50→21:00)
[2018-01-23] MEDS ORDERED: HEPARIN 5,000 UNIT/0.5 ML VIAL ×2 (08:32→20:22)
[2018-01-23] MEDS: AMLODIPINE 10 MG TAB PO (08:46)
[2018-01-23] MEDS: MULTIVIT/CA CARB/B CMPLX/FA TAB PO (08:46)
[2018-01-23] MEDS: SEVELAMER CARBONATE 800 MG TABLET PO ×3 (08:46→17:58)
[2018-01-23] MEDS: HEPARIN 5,000 UNIT/1 ML VIAL SC ×2 (08:46→21:12)
[2018-01-23] MEDS: UREA 40% CR 7OZ TOP (08:47)
[2018-01-23] MEDS: NEOMYC/POLYMYX/BACIT 30 GM OINT TOP ×2 (08:47→21:09)
[2018-01-23] MEDS: ATORVASTATIN 20 MG TAB PO (21:02)
[2018-01-23] MEDS: INSULIN GLARGINE [LANTus] (100 UNITS/ML) SYG SC (21:11)
[2018-01-24] MEDS: INSULIN ASPART [NOVOLOG] 3 ML PEN SC ×7 (07:50→20:57)
[2018-01-24] MEDS: MULTIVIT/CA CARB/B CMPLX/FA TAB PO (08:29)
[2018-01-24] MEDS: SEVELAMER CARBONATE 800 MG TABLET PO ×3 (08:29→17:47)
[2018-01-24] MEDS: HEPARIN 5,000 UNIT/1 ML VIAL SC ×2 (09:00→21:02)
[2018-01-24] MEDS: UREA 40% CR 7OZ TOP (09:00)
[2018-01-24] MEDS: AMLODIPINE 10 MG TAB PO (09:00)
[2018-01-24] MEDS: NEOMYC/POLYMYX/BACIT 30 GM OINT TOP ×2 (10:32→20:58)
[2018-01-24] MEDS: HEPARIN 1000 UNITS/ML 10 ML INJ CATHETER (13:23)
[2018-01-24] MEDS ORDERED: HEPARIN 5,000 UNIT/0.5 ML VIAL (20:12)
[2018-01-24] MEDS: ATORVASTATIN 20 MG TAB PO (20:56)
[2018-01-24] MEDS: INSULIN GLARGINE [LANTus] (100 UNITS/ML) SYG SC (22:11)
[2018-01-25] MEDS: INSULIN ASPART [NOVOLOG] 3 ML PEN SC ×7 (07:50→20:30)
[2018-01-25] MEDS ORDERED: HEPARIN 5,000 UNIT/0.5 ML VIAL ×2 (08:01→20:20)
[2018-01-25] MEDS: MULTIVIT/CA CARB/B CMPLX/FA TAB PO (08:38)
[2018-01-25] MEDS: AMLODIPINE 10 MG TAB PO (08:39)
[2018-01-25] MEDS: SEVELAMER CARBONATE 800 MG TABLET PO ×3 (08:39→17:30)
[2018-01-25] MEDS: HEPARIN 5,000 UNIT/1 ML VIAL SC ×2 (08:41→20:37)
[2018-01-25] MEDS: UREA 40% CR 7OZ TOP (09:00)
[2018-01-25] MEDS: NEOMYC/POLYMYX/BACIT 30 GM OINT TOP ×2 (12:56→20:33)
[2018-01-25] MEDS ORDERED: INSULIN GLARGINE [LANTus] (100 UNITS/ML) SYG SC (20:00)
[2018-01-25] MEDS: ATORVASTATIN 20 MG TAB PO (20:32)
[2018-01-25] MEDS: INSULIN GLARGINE [LANTus] (100 UNITS/ML) SYG SC (20:36)
[2018-01-26 05:23] LABS: ADD MAN DIFF? NO
[2018-01-26 05:30] LABS: WHITE BLOOD COUNT 9.3 10^3/ul (4.8-10.8)
[2018-01-26 05:30] LABS: BASOPHIL # 0.1 10^3/ul (0.0-0.1); BASOPHILS % 0.5 % (0.0-2.0); EOSINOPHILS # 0.4 10^3/ul (0.0-0.5); HEMATOCRIT 29.1 % (42.0-52.0); HEMOGLOBIN 9.3 g/dl (14.0-18.0); LYMPHOCYTES # 2.7 10^3/ul (0.8-2.9); LYMPHOCYTES % 28.4 % (15.0-51.0); MEAN CORPUSCULAR HEMOGLOBIN 25.1 pg (29.0-33.0); MEAN CORPUSCULAR VOLUME 78.4 fl (82.0-101.0); MEAN PLATELET VOLUME 9.9 fl (7.4-10.4); MONOCYTES % 10.6 % (0.0-11.0); NEUTROPHIL # 5.2 10^3/ul (1.6-7.5); NEUTROPHILS % 56.1 % (39.0-77.0); PLATELET COUNT 313 10^3/UL (140-415); RED BLOOD COUNT 3.71 10^6/ul (4.70-6.10); RED CELL DISTRIBUTION WIDTH 15.1 % (11.5-14.5)
[2018-01-26 06:14] LABS: ANION GAP 12 (5-13); BLOOD UREA NITROGEN 39 mg/dl (7-20); CALCIUM 8.2 mg/dl (8.4-10.2); CARBON DIOXIDE 24 mmol/L (21-31); CHLORIDE 95 mmol/L (97-110); Estimated GFR 13 mL/min (>60); GLUCOSE 108 mg/dl (70-220); MAGNESIUM 2.1 mg/dl (1.7-2.5); PHOSPHORUS 5.1 mg/dl (2.5-4.9); POTASSIUM 4.5 mmol/L (3.5-5.1); SODIUM 131 mmol/L (135-144)
[2018-01-26] MEDS: INSULIN ASPART [NOVOLOG] 3 ML PEN SC ×7 (07:50→21:00)
[2018-01-26] MEDS ORDERED: HEPARIN 5,000 UNIT/0.5 ML VIAL ×2 (08:15→21:01)
[2018-01-26] MEDS: AMLODIPINE 10 MG TAB PO (09:18)
[2018-01-26] MEDS: MULTIVIT/CA CARB/B CMPLX/FA TAB PO (09:18)
[2018-01-26] MEDS: SEVELAMER CARBONATE 800 MG TABLET PO ×3 (09:19→17:55)
[2018-01-26] MEDS: NEOMYC/POLYMYX/BACIT 30 GM OINT TOP ×2 (09:20→21:21)
[2018-01-26] MEDS: UREA 40% CR 7OZ TOP (09:20)
[2018-01-26] MEDS: HEPARIN 5,000 UNIT/1 ML VIAL SC ×2 (09:29→21:21)
[2018-01-26] MEDS: HEPARIN 1000 UNITS/ML 10 ML INJ CATHETER (19:22)
[2018-01-26] MEDS: ATORVASTATIN 20 MG TAB PO (21:19)
[2018-01-26] MEDS: INSULIN GLARGINE [LANTus] (100 UNITS/ML) SYG SC (21:50)
[2018-01-27] MEDS: INSULIN ASPART [NOVOLOG] 3 ML PEN SC ×7 (07:50→20:32)
[2018-01-27] MEDS ORDERED: HEPARIN 5,000 UNIT/0.5 ML VIAL ×2 (08:28→20:20)
[2018-01-27] MEDS: MULTIVIT/CA CARB/B CMPLX/FA TAB PO (08:38)
[2018-01-27] MEDS: SEVELAMER CARBONATE 800 MG TABLET PO ×3 (08:38→17:45)
[2018-01-27] MEDS: AMLODIPINE 10 MG TAB PO (08:39)
[2018-01-27] MEDS: HEPARIN 5,000 UNIT/1 ML VIAL SC ×2 (08:41→20:31)
[2018-01-27] MEDS: NEOMYC/POLYMYX/BACIT 30 GM OINT TOP ×2 (08:41→20:36)
[2018-01-27] MEDS: UREA 40% CR 7OZ TOP (08:42)
[2018-01-27] MEDS: ATORVASTATIN 20 MG TAB PO (20:29)
[2018-01-27] MEDS: INSULIN GLARGINE [LANTus] (100 UNITS/ML) SYG SC (20:31)
[2018-01-28] MEDS: INSULIN ASPART [NOVOLOG] 3 ML PEN SC ×7 (07:50→21:00)
[2018-01-28] MEDS ORDERED: HEPARIN 5,000 UNIT/0.5 ML VIAL ×2 (08:15→20:10)
[2018-01-28] MEDS: SEVELAMER CARBONATE 800 MG TABLET PO ×3 (08:23→17:31)
[2018-01-28] MEDS: AMLODIPINE 10 MG TAB PO (08:24)
[2018-01-28] MEDS: MULTIVIT/CA CARB/B CMPLX/FA TAB PO (08:25)
[2018-01-28] MEDS: HEPARIN 5,000 UNIT/1 ML VIAL SC ×2 (08:28→20:59)
[2018-01-28] MEDS: UREA 40% CR 7OZ TOP (08:32)
[2018-01-28] MEDS: NEOMYC/POLYMYX/BACIT 30 GM OINT TOP ×2 (08:32→21:01)
[2018-01-28] MEDS: INSULIN GLARGINE [LANTus] (100 UNITS/ML) SYG SC (20:58)
[2018-01-28] MEDS: ATORVASTATIN 20 MG TAB PO (21:00)
[2018-01-29 05:50] LABS: ADD MAN DIFF? NO
[2018-01-29 05:57] LABS: BASOPHIL # 0.1 10^3/ul (0.0-0.1); BASOPHILS % 0.6 % (0.0-2.0); EOSINOPHILS # 0.3 10^3/ul (0.0-0.5); EOSINOPHILS % 3.1 % (0.0-7.0); HEMATOCRIT 30.4 % (42.0-52.0); HEMOGLOBIN 9.8 g/dl (14.0-18.0); LYMPHOCYTES # 2.1 10^3/ul (0.8-2.9); MEAN CORPUSCULAR HEMOGLOBIN 25.1 pg (29.0-33.0); MEAN CORPUSCULAR HGB CONC 32.2 g/dl (32.0-37.0); MEAN CORPUSCULAR VOLUME 77.9 fl (82.0-101.0); MEAN PLATELET VOLUME 9.8 fl (7.4-10.4); MONOCYTE # 0.9 10^3/ul (0.3-0.9); NEUTROPHIL # 5.2 10^3/ul (1.6-7.5); NEUTROPHILS % 61.2 % (39.0-77.0); PLATELET COUNT 293 10^3/UL (140-415); RED CELL DISTRIBUTION WIDTH 15.2 % (11.5-14.5)
[2018-01-29 05:57] LABS: WHITE BLOOD COUNT 8.5 10^3/ul (4.8-10.8)
[2018-01-29 06:34] LABS: ANION GAP 13 (5-13); BLOOD UREA NITROGEN 45 mg/dl (7-20); CALCIUM 8.2 mg/dl (8.4-10.2); CARBON DIOXIDE 25 mmol/L (21-31); CHLORIDE 96 mmol/L (97-110); CREATININE 5.04 mg/dl (0.61-1.24); Estimated GFR 12 mL/min (>60); GLUCOSE 99 mg/dl (70-220); MAGNESIUM 2.2 mg/dl (1.7-2.5); PHOSPHORUS 5.9 mg/dl (2.5-4.9); POTASSIUM 4.5 mmol/L (3.5-5.1); SODIUM 134 mmol/L (135-144)
[2018-01-29] MEDS: INSULIN ASPART [NOVOLOG] 3 ML PEN SC ×7 (07:50→21:00)
[2018-01-29] MEDS ORDERED: HEPARIN 5,000 UNIT/0.5 ML VIAL ×2 (08:21→20:31)
[2018-01-29] MEDS: SEVELAMER CARBONATE 800 MG TABLET PO ×3 (08:34→17:39)
[2018-01-29] MEDS: AMLODIPINE 10 MG TAB PO (08:36)
[2018-01-29] MEDS: HEPARIN 5,000 UNIT/1 ML VIAL SC ×2 (08:39→21:03)
[2018-01-29] MEDS: MULTIVIT/CA CARB/B CMPLX/FA TAB PO (08:40)
[2018-01-29] MEDS: UREA 40% CR 7OZ TOP (08:41)
[2018-01-29] MEDS: NEOMYC/POLYMYX/BACIT 30 GM OINT TOP ×2 (08:42→20:52)
[2018-01-29] MEDS: HEPARIN 1000 UNITS/ML 10 ML INJ CATHETER (12:10)
[2018-01-29] MEDS: EPOETIN 3000 UNITS/1 ML INJ (ESRD) SC (14:40)
[2018-01-29] MEDS: ATORVASTATIN 20 MG TAB PO (20:51)
[2018-01-29] MEDS: INSULIN GLARGINE [LANTus] (100 UNITS/ML) SYG SC (21:05)
[2018-01-30] MEDS: INSULIN ASPART [NOVOLOG] 3 ML PEN SC ×7 (07:50→20:48)
[2018-01-30] MEDS ORDERED: HEPARIN 5,000 UNIT/0.5 ML VIAL ×2 (08:03→19:49)
[2018-01-30] MEDS: SEVELAMER CARBONATE 800 MG TABLET PO ×3 (08:45→17:45)
[2018-01-30] MEDS: MULTIVIT/CA CARB/B CMPLX/FA TAB PO (08:46)
[2018-01-30] MEDS: NEOMYC/POLYMYX/BACIT 30 GM OINT TOP ×2 (08:46→21:05)
[2018-01-30] MEDS: UREA 40% CR 7OZ TOP (08:46)
[2018-01-30] MEDS: AMLODIPINE 10 MG TAB PO (08:46)
[2018-01-30] MEDS: HEPARIN 5,000 UNIT/1 ML VIAL SC ×2 (08:48→21:05)
[2018-01-30] MEDS: ATORVASTATIN 20 MG TAB PO (20:47)
[2018-01-30] MEDS: INSULIN GLARGINE [LANTus] (100 UNITS/ML) SYG SC (21:04)
[2018-01-31] MEDS: INSULIN ASPART [NOVOLOG] 3 ML PEN SC ×7 (07:50→20:20)
[2018-01-31] MEDS ORDERED: HEPARIN 5,000 UNIT/0.5 ML VIAL ×2 (08:24→20:07)
[2018-01-31] MEDS: AMLODIPINE 10 MG TAB PO (08:30)
[2018-01-31] MEDS: MULTIVIT/CA CARB/B CMPLX/FA TAB PO (08:30)
[2018-01-31] MEDS: SEVELAMER CARBONATE 800 MG TABLET PO ×3 (08:30→17:36)
[2018-01-31] MEDS: HEPARIN 5,000 UNIT/1 ML VIAL SC ×2 (08:31→20:33)
[2018-01-31] MEDS: NEOMYC/POLYMYX/BACIT 30 GM OINT TOP ×2 (08:33→20:24)
[2018-01-31] MEDS: UREA 40% CR 7OZ TOP (08:33)
[2018-01-31] MEDS: HEPARIN 1000 UNITS/ML 10 ML INJ CATHETER (13:51)
[2018-01-31] MEDS: ATORVASTATIN 20 MG TAB PO (20:22)
[2018-01-31] MEDS: INSULIN GLARGINE [LANTus] (100 UNITS/ML) SYG SC (20:26)
[2018-02-01] MEDS: INSULIN ASPART [NOVOLOG] 3 ML PEN SC ×7 (07:50→20:50)
[2018-02-01] MEDS ORDERED: HEPARIN 5,000 UNIT/0.5 ML VIAL ×2 (08:27→20:32)
[2018-02-01] MEDS: MULTIVIT/CA CARB/B CMPLX/FA TAB PO (09:04)
[2018-02-01] MEDS: SEVELAMER CARBONATE 800 MG TABLET PO ×3 (09:04→17:40)
[2018-02-01] MEDS: AMLODIPINE 10 MG TAB PO (09:05)
[2018-02-01] MEDS: HEPARIN 5,000 UNIT/1 ML VIAL SC ×2 (09:12→20:50)
[2018-02-01] MEDS: NEOMYC/POLYMYX/BACIT 30 GM OINT TOP ×2 (10:21→20:50)
[2018-02-01] MEDS: UREA 40% CR 7OZ TOP (10:21)
[2018-02-01] MEDS: ATORVASTATIN 20 MG TAB PO (20:46)
[2018-02-01] MEDS: INSULIN GLARGINE [LANTus] (100 UNITS/ML) SYG SC (20:51)
[2018-02-02] MEDS: INSULIN ASPART [NOVOLOG] 3 ML PEN SC ×7 (07:50→21:00)
[2018-02-02] MEDS ORDERED: HEPARIN 5,000 UNIT/0.5 ML VIAL ×2 (08:19→20:33)
[2018-02-02] MEDS: SEVELAMER CARBONATE 800 MG TABLET PO ×3 (08:47→18:45)
[2018-02-02] MEDS: MULTIVIT/CA CARB/B CMPLX/FA TAB PO (08:47)
[2018-02-02] MEDS: AMLODIPINE 10 MG TAB PO ×2 (08:48→08:54)
[2018-02-02] MEDS: NEOMYC/POLYMYX/BACIT 30 GM OINT TOP ×2 (08:50→21:05)
[2018-02-02] MEDS: HEPARIN 5,000 UNIT/1 ML VIAL SC ×2 (08:58→21:05)
[2018-02-02] MEDS: UREA 40% CR 7OZ TOP (09:00)
[2018-02-02] MEDS: HEPARIN 1000 UNITS/ML 10 ML INJ CATHETER (12:23)
[2018-02-02] MEDS: ATORVASTATIN 20 MG TAB PO (21:00)
[2018-02-02] MEDS: INSULIN GLARGINE [LANTus] (100 UNITS/ML) SYG SC (21:05)
[2018-02-03] MEDS: INSULIN ASPART [NOVOLOG] 3 ML PEN SC ×7 (07:50→21:00)
[2018-02-03] MEDS ORDERED: HEPARIN 5,000 UNIT/0.5 ML VIAL ×2 (08:41→19:53)
[2018-02-03] MEDS: MULTIVIT/CA CARB/B CMPLX/FA TAB PO (08:46)
[2018-02-03] MEDS: SEVELAMER CARBONATE 800 MG TABLET PO ×3 (08:46→17:44)
[2018-02-03] MEDS: AMLODIPINE 10 MG TAB PO (08:47)
[2018-02-03] MEDS: NEOMYC/POLYMYX/BACIT 30 GM OINT TOP ×2 (08:48→21:35)
[2018-02-03] MEDS: UREA 40% CR 7OZ TOP (08:49)
[2018-02-03] MEDS: HEPARIN 5,000 UNIT/1 ML VIAL SC ×2 (08:54→21:08)
[2018-02-03] MEDS: INSULIN GLARGINE [LANTus] (100 UNITS/ML) SYG SC (21:05)
[2018-02-03] MEDS: ATORVASTATIN 20 MG TAB PO (21:24)
[2018-02-04] MEDS: INSULIN ASPART [NOVOLOG] 3 ML PEN SC ×7 (07:50→20:45)
[2018-02-04] MEDS ORDERED: HEPARIN 5,000 UNIT/0.5 ML VIAL ×2 (08:33→20:15)
[2018-02-04] MEDS: SEVELAMER CARBONATE 800 MG TABLET PO ×3 (08:42→18:09)
[2018-02-04] MEDS: AMLODIPINE 10 MG TAB PO (08:42)
[2018-02-04] MEDS: MULTIVIT/CA CARB/B CMPLX/FA TAB PO (08:42)
[2018-02-04] MEDS: HEPARIN 5,000 UNIT/1 ML VIAL SC ×2 (08:43→20:41)
[2018-02-04] MEDS: NEOMYC/POLYMYX/BACIT 30 GM OINT TOP ×2 (08:44→20:45)
[2018-02-04] MEDS: UREA 40% CR 7OZ TOP (08:46)
[2018-02-04] MEDS: ATORVASTATIN 20 MG TAB PO (20:32)
[2018-02-04] MEDS: INSULIN GLARGINE [LANTus] (100 UNITS/ML) SYG SC (20:41)
[2018-02-05 05:01] LABS: ADD MAN DIFF? NO
[2018-02-05 05:10] LABS: WHITE BLOOD COUNT 8.1 10^3/ul (4.8-10.8)
[2018-02-05 05:10] LABS: BASOPHILS % 0.5 % (0.0-2.0); EOSINOPHILS # 0.4 10^3/ul (0.0-0.5); EOSINOPHILS % 4.3 % (0.0-7.0); HEMATOCRIT 29.8 % (42.0-52.0); HEMOGLOBIN 9.3 g/dl (14.0-18.0); LYMPHOCYTES # 2.7 10^3/ul (0.8-2.9); MEAN CORPUSCULAR HEMOGLOBIN 25.2 pg (29.0-33.0); MEAN CORPUSCULAR HGB CONC 31.2 g/dl (32.0-37.0); MEAN CORPUSCULAR VOLUME 80.8 fl (82.0-101.0); MEAN PLATELET VOLUME 9.5 fl (7.4-10.4); MONOCYTE # 0.7 10^3/ul (0.3-0.9); MONOCYTES % 8.8 % (0.0-11.0); NEUTROPHIL # 4.3 10^3/ul (1.6-7.5); NEUTROPHILS % 53.2 % (39.0-77.0); PLATELET COUNT 236 10^3/UL (140-415); RED BLOOD COUNT 3.69 10^6/ul (4.70-6.10); RED CELL DISTRIBUTION WIDTH 15.9 % (11.5-14.5)
[2018-02-05 05:31] LABS: ANION GAP 11 (5-13); BLOOD UREA NITROGEN 47 mg/dl (7-20); CALCIUM 8.4 mg/dl (8.4-10.2); CARBON DIOXIDE 21 mmol/L (21-31); CHLORIDE 104 mmol/L (97-110); CREATININE 4.91 mg/dl (0.61-1.24); Estimated GFR 12 mL/min (>60); GLUCOSE 88 mg/dl (70-220); PHOSPHORUS 4.7 mg/dl (2.5-4.9); POTASSIUM 5.4 mmol/L (3.5-5.1); SODIUM 136 mmol/L (135-144)
[2018-02-05] MEDS: INSULIN ASPART [NOVOLOG] 3 ML PEN SC ×7 (07:50→21:00)
[2018-02-05] MEDS ORDERED: HEPARIN 5,000 UNIT/0.5 ML VIAL (08:14)
[2018-02-05] MEDS: SEVELAMER CARBONATE 800 MG TABLET PO ×3 (08:18→17:45)
[2018-02-05] MEDS: MULTIVIT/CA CARB/B CMPLX/FA TAB PO (08:18)
[2018-02-05] MEDS: HEPARIN 5,000 UNIT/1 ML VIAL SC (08:21)
[2018-02-05] MEDS: NEOMYC/POLYMYX/BACIT 30 GM OINT TOP (08:24)
[2018-02-05] MEDS: UREA 40% CR 7OZ TOP (08:24)
[2018-02-05] MEDS: AMLODIPINE 10 MG TAB PO (09:00)
[2018-02-05] MEDS: ATORVASTATIN 20 MG TAB PO (21:15)
[2018-02-05] MEDS: INSULIN GLARGINE [LANTus] (100 UNITS/ML) SYG SC (21:22)
[2018-02-05] MEDS ORDERED: HEPARIN 1000 UNITS/ML 10 ML INJ (22:47)
[2018-02-05] MEDS: HEPARIN 1000 UNITS/ML 10 ML INJ CATHETER (23:50)
[2018-02-06] MEDS: INSULIN ASPART [NOVOLOG] 3 ML PEN SC ×6 (09:05→19:02)
[2018-02-06] MEDS: MULTIVIT/CA CARB/B CMPLX/FA TAB PO (09:06)
[2018-02-06] MEDS: LISINOPRIL 20 MG TAB PO (09:06)
[2018-02-06] MEDS: AMLODIPINE 10 MG TAB PO (09:06)
[2018-02-06] MEDS: SEVELAMER CARBONATE 800 MG TABLET PO ×3 (09:06→19:01)
[2018-02-06] MEDS: NEOMYC/POLYMYX/BACIT 30 GM OINT TOP ×2 (09:08)
[2018-02-06] MEDS: UREA 40% CR 7OZ TOP (09:08)
== END 2018-02-06 19:50 | disposition home or self-care (01) | DRG 291 ==
LOC: E/R 15:43 → MS1 01-15 13:37 → TEL 18:13
PROC: 0JH63XZ Insertion of Tunneled Vascular Access Device into Chest Subcutaneous Tissue and Fascia, Percutaneous Approach (ICD-10-PCS; principal; 2018-01-16 12:30)
PROC: 02H633Z Insertion of Infusion Device into Right Atrium, Percutaneous Approach (ICD-10-PCS; 2018-01-16 12:30)
PROC: 02H633Z Insertion of Infusion Device into Right Atrium, Percutaneous Approach (ICD-10-PCS; 2018-01-16 12:49)
PROC: 5A1D70Z Performance of Urinary Filtration, Intermittent, Less than 6 Hours Per Day (ICD-10-PCS; 2018-01-16 12:49)
DX: I13.2 Hypertensive heart and chronic kidney disease with heart failure and with stage 5 chronic kidney disease, or end stage renal disease (principal); N18.6 End stage renal disease; J96.01 Acute respiratory failure with hypoxia; I50.30 Unspecified diastolic (congestive) heart failure; N17.9 Acute kidney failure, unspecified; E87.2 Acidosis; L97.518 Non-pressure chronic ulcer of other part of right foot with other specified severity; M84.474A Pathological fracture, right foot, initial encounter for fracture; D63.1 Anemia in chronic kidney disease; E11.22 Type 2 diabetes mellitus with diabetic chronic kidney disease; E11.621 Type 2 diabetes mellitus with foot ulcer; E11.42 Type 2 diabetes mellitus with diabetic polyneuropathy; E87.5 Hyperkalemia; E78.5 Hyperlipidemia, unspecified; E87.70 Fluid overload, unspecified; E66.9 Obesity, unspecified; F17.200 Nicotine dependence, unspecified, uncomplicated; L84 Corns and callosities; M19.071 Primary osteoarthritis, right ankle and foot; R60.0 Localized edema; Z68.34 Body mass index [BMI] 34.0-34.9, adult; Z89.422 Acquired absence of other left toe(s); Z99.2 Dependence on renal dialysis; Z79.4 Long term (current) use of insulin
CPT/HCPCS: 36415; 36556; 36600; 71045; 73610-RT; 73630; 76775; 76942; 80048; 80053; 81001; 81003; 82043; 82595; 82728; 82803; 82962; 83036; 83540; 83735; 83880; 84100; 84155; 84300; 84484; 85025; 85610; 85651; 85730; 86021; 86038; 86160; 86226; 86430; 86704; 86709; 86803; 87340; 90935; 93005; 93308; 94644; 96374; 99291-25